=== PATIENT | female | born 1995 | race American Indian/Alaskan Native ===

== ENCOUNTER 2021-08-02 09:56 | Inpatient (IN) | payer MEDICAID ==
[2021-08-02] MEDS ORDERED: LIDOCAINE (2%) 20 MG/1 ML VIAL 20 ML MDV INFILTRATI NR (11:06)
[2021-08-02] MEDS ORDERED: AMPICILLIN/NS 2 GM/100 ML 2 GM/100 ML BAG IV ONE (11:06)
[2021-08-02 11:23] LABS: Hematocrit 32.6 % (30.3-42.9); Mean Corpuscular HGB Conc 31 % (30-34); Mean Corpuscular Volume 73 fl (79-97); Platelet Count 288 K/mm3 (140-440); Red Blood Count 4.45 M/mm3 (3.65-5.03); Red Cell Distribution Width 16.1 % (13.2-15.2)
[2021-08-02] MEDS ORDERED: METHYLERGONOVINE MALEATE 0.2 MG/ML VIAL IM PRN (11:30)
[2021-08-02] MEDS ORDERED: miSOPROStol 200 MCG TAB PR PRN (11:30)
[2021-08-02] MEDS ORDERED: OXYTOCIN 10 UNIT/1 ML INJ IM PRN (11:30)
[2021-08-02] MEDS ORDERED: CARBOPROST TROMETHAMINE 250 MCG/1 ML INJ IM PRN (11:30)
[2021-08-02] MEDS ORDERED: NalbUPHINE 10 MG/1 ML INJ IV PRN ×2 (11:30→17:00)
[2021-08-02] MEDS ORDERED: TERBUTALINE 1 MG/1 ML INJ SUB-Q PRN (11:30)
[2021-08-02] MEDS ORDERED: ONDANSETRON 4 MG/2 ML INJ IV PRN ×2 (11:30→17:00)
[2021-08-02] MEDS ORDERED: LOPERAMIDE 2 MG CAP PO PRN (11:30)
[2021-08-02] MEDS ORDERED: fentaNYL 100 MCG/2 ML INJ IV PRN (11:30)
[2021-08-02] MEDS ORDERED: ePHEDrine SULFATE 50 MG/1 ML INJ IV PRN (11:30)
[2021-08-02] MEDS ORDERED: PROMETHAZINE 25 MG TAB PO PRN (11:30)
--- NOTE | 2021-08-02 11:54 | History and Physical Report ---
History of Present Illness Date of examination: 08/02/21 Date of admission: 08/02/21 11:06 Chief complaint: sent from clinic with LOF History of present illness: at 39.6wks by LMP c/w U/S and care at [facility]. Pt gave h/o LOF while she was being examined in the [facility] at 9:15am this morning. The color of fluid was blood tinged per FOB present and bloody per pt report. pt c/o painful ctx and wants no epidural at this time. Pt admits to movement and denies headache. Past History Past Medical History: no pertinent history Past Surgical History: no surgical history Social history: no significant social history - Obstetrical History Expected Date of Delivery: 08/03/21 Actual Gestation: 39 Week(s) 6 Day(s) : 1 Hx # Term Pregnancies: 0 Number of Living Children: 0 Medications and Allergies Allergies Allergy/AdvReac Type Severity Reaction Status Date / Time No Known Allergies Allergy Verified 08/02/21 11:48 Home Medications Medication Instructions Recorded Confirmed Last Taken Type Cvs Vitamins Tablet 1 tab PO DAILY 08/02/21 08/02/21 3 Days Ago History ~07/30/21 Active Meds: Active Medications Acetaminophen (Acetaminophen 325 Mg Tab) 650 mg PO Q4H PRN PRN Reason: Pain, Mild (1-3) Carboprost Tromethamine (Carboprost Tromethamine 250 Mcg/1 Ml Inj) 250 mcg IM ONCE PRN PRN Reason: Uterine Bleeding Ephedrine Sulfate (Ephedrine Sulfate 50 Mg/1 Ml Inj) 10 mg IV Q2M PRN PRN Reason: Hypotension Fentanyl (Fentanyl 100 Mcg/2 Ml Inj) 100 mcg IV Q2H PRN PRN Reason: Pain,Severe (7-10) LABOR PAIN Oxytocin/Sodium Chloride (Pitocin/Ns 30 Unit/500ml) 30 units in 500 mls @ 2 mls/hr IV TITR RODOLFO; Protocol Lactated Ringer's (Lactated Ringers) 1,000 mls @ 125 mls/hr IV DIRECT RODOLFO Oxytocin/Sodium Chloride (Pitocin/Ns 30 Unit/500ml) 30 units in 500 mls @ 40 mls/hr IV TITR RODOLFO; Protocol Ampicillin Sodium (Ampicillin/Ns 2 Gm/100 Ml) 2 gm in 100 mls @ 100 mls/hr IV ONCE ONE; Protocol Stop: 08/02/21 12:05 Lidocaine (Lidocaine (2%) 20 Mg/1 Ml Vial 20 Ml Mdv) 20 ml INFILTRATI ONCE NR Stop: 08/02/21 20:00 Loperamide HCl (Loperamide 2 Mg Cap) 2 mg PO ONCE PRN PRN Reason: give with Hemabate Methylergonovine Maleate (Methylergonovine Maleate 0.2 Mg/Ml Vial) 0.2 mg IM ONCE PRN PRN Reason: Uterine Bleeding Mineral Oil (Mineral Oil 30 Ml Oral Liqd) 30 ml PO QHS PRN PRN Reason: Constipation Misoprostol (Misoprostol 200 Mcg Tab) 800 mcg [place] ONCE PRN PRN Reason: Uterine Bleeding Nalbuphine HCl (Nalbuphine 10 Mg/1 Ml Inj) 10 mg IV Q2H PRN PRN Reason: Pain, Moderate (4-6) Ondansetron HCl (Ondansetron 4 Mg/2 Ml Inj) 4 mg IV Q8H PRN PRN Reason: Nausea And Vomiting Oxytocin (Oxytocin 10 Unit/1 Ml Inj) 10 unit IM ONCE PRN PRN Reason: Uterine Bleeding Promethazine HCl (Promethazine 25 Mg Tab) 25 mg PO Q6H PRN PRN Reason: Nausea And Vomiting Terbutaline Sulfate (Terbutaline 1 Mg/1 Ml Inj) 0.25 mg SUB-Q ONCE PRN PRN Reason: Hyperstimulation/Hypertonicity Review of Systems All systems: negative (LOF and ctx) - Vital Signs Vital signs: Vital Signs Pulse Pulse Ox 99 H 99 08/02/21 10:28 08/02/21 10:28 Temp Pulse Resp BP Pulse Ox 93 H 139/73 99 08/02/21 11:13 08/02/21 10:35 08/02/21 11:13 - Physical Exam Breasts: Positive: deferred Cardiovascular: Regular rate Lungs: Positive: Normal air movement Abdomen: Positive: soft Genitourinary (Female): Positive: normal external genitalia Uterus: Positive: enlarged (gravid and non-tender) Extremities: Positive: normal - Obstetrical FHR: category 1 Uterine Contraction Monitor Mode: Palpation Cervical Dilatation: 5 (by triage nurse) Cervical Effacement Percentage: 80 station: -2 Uterine Contraction Pattern: Irregular Uterine Contraction Intensity: Moderate Results Result Diagrams: 08/02/21 10:58 Abnormal lab results 08/02/21 Range/Units 10:58 WBC 17.6 H (4.5-11.0) K/mm3 Hgb 10.0 L (10.1-14.3) gm/dl MCV 73 L (79-97) fl MCH 23 L (28-32) pg RDW 16.1 H (13.2-15.2) % All other labs normal. Assessment and Plan Term IUP in active labor, leucocytosis seen, GBS not recorded in the chart. PNC at [place] 1. Admit to labor and delivery, may have epidural if pt changes her mind 2. Augment with pitocin 3. Give amp now for unknown GBS 4. Will send cath urine specimen for possible UTI 5. Give IV pain med now and hydrate Discussed plan of care with pt for vaginal attempt, with FHR reassuring at this time. If NRFHR, then alternate route of delivery with section recommended, risks, benefits and alternatives discussed. Pt declines C/Section. All questions encouraged and answered
[2021-08-02] MEDS ORDERED: OXYTOCIN DRIP 30 UNITS/500 ML BAG IV SCH ×3 (12:00→22:03)
--- NOTE | 2021-08-02 12:16 | Event Note ---
Date: 08/02/21 pt re-evaluated and very tearful. Areas of external FHR with loss of contact. FSE and IUPC placed. Amniotic fluid remains blood tinged. Pelvic /. Will make ctx adequate with pitocin and to get amp first dose now. Hopeful for vaginal delivery.
[2021-08-02] MEDS: LACTATED RINGERS 1,000 ML IV SCH ×2 (12:30→22:55)
--- NOTE | 2021-08-02 14:00 | Event Note ---
Date: 08/02/21 pt evaluated with NRFHR and the need for alternate route of delivery via section; risks, benefits and alternatives discussed including cerebral palsy in the infant and pt declines c/section. Oral temp 97.9 and axillary 101 and pt with rigors. I pleaded with pt concerning alternative route of delivery with FOB present and she declines. Will continue oxygen therapy. Will do CXR with febrile morbidity and with give broad spectrum antibiotics with amp and gent for now. Will do blood cultures now and add lactic acid. Unable to start pitocin at this time. Pt still declines epidural. Plan of care discussed. All questions encouraged and answered
[2021-08-02] MEDS ORDERED: ACETAMINOPHEN 500 MG TAB PO ONE (14:05)
--- NOTE | 2021-08-02 14:59 | XRay Report ---
CHEST 1 VIEW INDICATION: febrile morbidity and ;. COMPARISON: None FINDINGS: Support devices: None. Heart: Within normal limits. Lungs/Pleura: No acute air space or interstitial disease. Additional findings: None. IMPRESSION: No acute findings. Signer Name: Seven Beltrán Jr, MD Signed: 08/02/2021 2:54 PM Workstation Name: [id number]
[2021-08-02] MEDS ORDERED: GENTAMICIN/NS 100 MG/100 ML 100 MG/100 ML BAG IV SCH (15:00)
[2021-08-02] MEDS ORDERED: ONDANSETRON 4 MG/2 ML INJ ONE (15:14)
[2021-08-02] MEDS ORDERED: BUPIVACAINE/PF (0.5%) 5 MG/1 ML 30 ML VIAL INFILTRATI ONE (15:14)
[2021-08-02] MEDS ORDERED: KETOROLAC 30 MG/1 ML INJ ONE (15:14)
[2021-08-02] MEDS ORDERED: dexAMETHasone 20 MG/5 ML VIAL ONE (15:15)
[2021-08-02] MEDS ORDERED: BICITRA ORAL LIQD 30ML PO NR (15:16)
--- NOTE | 2021-08-02 15:20 | Event Note ---
Date: 08/02/21 Pt now with meconium stained fluid and after another attempt for c/section route of delivery, pt discussed with FOB and plans to do same. Elevated lactic acid seen and anesthesiologist aware and will decide preferred method for c/section; NICU notified. Covid test to be done when daily staff available in the am. Fetus remains with tacchy in the 180's and moderate variability. Nurse states pt refused pelvic exam.
[2021-08-02 15:22] LABS: Alanine Aminotransferase 17 units/L (7-56); Albumin 3.1 g/dL (3.9-5); BUN/Creatinine Ratio 4; Blood Urea Nitrogen 3 mg/dL (7-17); Calcium 8.9 mg/dL (8.4-10.2); Hemolysis Index 1; Uric Acid 3.8 mg/dL (3.5-7.6)
[2021-08-02] MEDS ORDERED: PHENYLEPHRINE 10 MG/1 ML INJ SDV ONE (15:24)
[2021-08-02] MEDS ORDERED: LIDOCAINE MPF (2%) 20 MG/1 ML VIAL 5 ML ONE (15:24)
[2021-08-02] MEDS ORDERED: FAMOTIDINE 20 MG/2 ML INJ IV ONE (15:30)
[2021-08-02] MEDS ORDERED: AMPICILLIN/NS 1 GM/50 ML 1 GM/50 ML BAG IV SCH (16:00)
[2021-08-02] MEDS ORDERED: METOCLOPRAMIDE 10 MG/2 ML INJ IV NR (16:00)
[2021-08-02] MEDS ORDERED: ceFAZolin/STERILE WATER 2 GM/20 ML SYRINGE IV NR (16:00)
--- NOTE | 2021-08-02 16:30 | Anesthesia Day of Surgery ---
Anesthesia Day of Surgery - Day of Surgery Patient Examined: Yes Patient H&P Reviewed: Yes Patient is NPO: Yes Beta Blockers: No Cardiac Clearance: No Pulmonary Clearance: No Dameon's Test: N/A
--- NOTE | 2021-08-02 16:31 | Anesthesia Consultation ---
Anesthesia Consult and Med Hx Date of service: 08/02/21 - Airway Anesthetic Teeth Evaluation: Good ROM Head & Neck: Adequate Mental/Hyoid Distance: Adequate Mallampati Class: Class III Intubation Access Assessment: Possibly Difficult - Pulmonary Exam CTA: Yes - Cardiac Exam Cardiac Exam: RRR - Pre-Operative Health Status ASA Pre-Surgery Classification: ASA3, Emergency Proposed Anesthetic Plan: Epidural, Spinal Nerve Block: TAP - Pulmonary Hx Smoking: No Hx Asthma: No Hx Respiratory Symptoms: Yes (PUI covid) Hx Sleep Apnea: No - Cardiovascular System Hx Hypertension: No Hx Heart Attack/AMI: No Hx Angina: No - Central Nervous System Hx Seizures: No Hx Psychiatric Problems: No - Gastrointestinal Hx Gastroesophageal Reflux Disease: No - Endocrine Hx Renal Disease: No Hx Liver Disease: No Hx Insulin Dependent Diabetes: No Hx Non-Insulin Dependent Diabetes: No Hx Hypothyroidism: No Hx Hyperthyroidism: No - Hematic Hx Anemia: No Hx Sickle Cell Disease: No - Other Systems Hx Alcohol Use: Yes (none during ) Hx Obesity: Yes
[2021-08-02] MEDS ORDERED: NALOXONE 0.4 MG/1 ML INJ IV PRN ×2 (16:32→22:03)
--- NOTE | 2021-08-02 16:32 | Progress Note ---
Spinal Anesthesia Block - Spinal Anesthesia Block Start Time: 15:45 Stop Time: 16:00 Performed by:: ANY BOURGEOIS (Mandy Sharma SRNA) Procedure: Combined spinal epidural is being performed for C/S. H&P, labs were reviewed. All questions and concerns were answered. Informed consent was obtained. Timeout performed. Patient in sitting position on side of bed. Sterile prep and drape was performed. 3 mL 1% lidocaine skin wheal at L [3]-L [4]. 17-gauge Tuohy epidural needle advanced to [id number] using air technique, [8cm]. 25-gauge spinal needle advanced, positive free-flowing CSF. Spinal dose of [Marcaine 10mg and Precedex 5mcg]. Epidural catheter advanced to [14] cm. [negative] Aspiration, [negative] test dose. Sterile dressing applied. Patient tolerated procedure well.
[2021-08-02] MEDS ORDERED: PROMETHAZINE 25 MG RECT SUPP PR PRN (17:00)
[2021-08-02] MEDS ORDERED: diphenhydrAMINE 50 MG/ML VIAL IV PRN (17:00)
[2021-08-02] MEDS ORDERED: HYDROmorphone 1 MG/1 ML INJ IV PRN (17:00)
--- NOTE | 2021-08-02 18:08 | Procedure Note ---
OB Delivery Note - Delivery Date of Delivery: 08/02/21 Surgeon: RADHA VILLAVICENCIO Estimated blood loss: other (1864cc) - Section Preop diagnosis: nonreassuring FHR tracing (IUP at 39.6wks, morbid obesity, febrile morbidity, chorioamnionitis) Postop diagnosis: same (and PPH) section procedure: primary low transverse Disposition: floor Complications: intra-op hemorrhage, uterine atony Narrative: Date: 08/02/21 Surgeon: Radha Villavicencio MD Preop Dx: IUP at 39.6wks, Non-reassuring FHR at 6cm with marked variability, meconium stained fluid, morbid obesity, Febrile morbidity Postop Dx: same Procedure : Primary Low transverse section Anesthesia: Spinal/epidural Intake: 1100cc Output: 500cc EBL: 1864 per QBL After the risks, benefits and alternatives of procedure discussed, patient signed consents and was taken to the operating room. Pt was given spinal/epidural anesthesia. After same was adequate, patient was prepped and draped in the usual sterile fashion. Peraza catheter in place and draining slightly cloudy urine. Pt was given prophylactic antibiotic per protocol and time out was done Pfannenstiel skin incision was made and taken sharply to the fascia and the incision extended using electrocautery. Superior edge of the fascia was grasped with ramin clamps and the rectus muscle using blunt dissection and also using electrocautery. Lower portion of the fascia also with electrocautery. Rectus muscle in the midline and Peritoneal cavity entered bluntly and extended with good visualization of the bladder. Kamran retractor placed. The bladder flap was created sharply using metzenbaum scissors. Lower uterine segment then entered transversely and amniotic sac entered using allys clamps. Uterine incision extended using bandage scissors. Meconium stained Infant delivered, with long umbilical cord around lower left extremity; infant bulb suctioned, cord clamped and baby handed to waiting pediatricians. Placenta then delivered completely and uterine cavity cleared of all clots and debri. The uterus was very boggy and same was not exteriorized but closed in 2 layers using 0-monocryl suture in a running locked fashion and then an additional layer of imbrication suture. Bladder peritoneum made hemostatic with electrocautery. Surgicel powder placed along incision line. Excellent hemostasis noted. The gutters were cleared of clots and debri and anterior peritoneum closed using 3-0 vicryl suture and rectus muscle reapproximated using 0-vicryl suture, both in a continuous fshion. Rectus fascia closed with 0-vicryl suture in a running locked fashion and subcutaneous tissue copiously irrigated with normal saline and re-approximated using 3-0 vicryl suture. Excellent hemostasis remains. The skin was closed with 4-0 monocryl suture and steristrips placed with pressure dressing. Sponge, lap, instrument and needle counts x2 were normal. Patient tolerated the procedure well and was taken to recovery room stable. Pt treated with methergine 0.2mg IM and pitocin IV for uterine atony and CBC to be done in recovery room with hemorrhage Findings: Viable male with meconium stained skin color, APGARS 8/9 and weight 3340g. Normal boggy uterus, tubes and ovaries. Pathology: placenta sent to pathology - A at 1 minute: 8 at 5 minutes: 9 Gender: Male (wt 3340g, thick meconium stained fluid and meconium stained)
[2021-08-02 18:57] LABS: Hematocrit 30.9 % (30.3-42.9); Hemoglobin 9.4 gm/dl (10.1-14.3); Mean Corpuscular HGB Conc 30 % (30-34); Mean Corpuscular Volume 73 fl (79-97); Platelet Count 246 K/mm3 (140-440); Red Blood Count 4.23 M/mm3 (3.65-5.03)
[2021-08-02] MEDS ORDERED: SODIUM CHLORIDE 0.9% 1000 ML 1,000 ML ONE (18:59)
[2021-08-02] MEDS ORDERED: SODIUM CHLORIDE 0.9% 1000 ML 1,000 ML IV ONE (19:19)
[2021-08-02 19:45] LABS: Anisocytosis RARE; Basophils % (Manual) 0 % (0.0-1.8); Eosinophils % (Manual) 0 % (0.0-4.3); Hypochromasia 1+; Total Cells Counted 100
[2021-08-02] MEDS ORDERED: GENTAMICIN 450 MG in SODIUM CHLORIDE 0.9% 100 ML IV SCH (22:00)
[2021-08-02] MEDS ORDERED: MINERAL OIL 30 ML ORAL LIQD PO PRN (22:00)
[2021-08-02] MEDS ORDERED: LANOLIN/ZINC/DIMETHICONE (LANSINOH) 7 GM TP PRN (22:03)
[2021-08-02] MEDS ORDERED: SENNOSIDES 8.6 MG TAB PO PRN (22:03)
[2021-08-02] MEDS ORDERED: MAGNESIUM HYDROXIDE (MOM) ORAL LIQD UDC PO PRN (22:03)
[2021-08-02] MEDS ORDERED: WITCH HAZEL/ GLYCERIN PAD TP PRN (22:03)
[2021-08-02] MEDS ORDERED: HYDROCORTISONE 25 MG RECTAL SUPP PR PRN (22:03)
[2021-08-02] MEDS ORDERED: SIMETHICONE 80 MG CHEW TAB PO PRN (22:03)
[2021-08-02] MEDS ORDERED: MORPHINE 4 MG/1 ML INJ IV PRN (22:03)
[2021-08-02] MEDS: FERROUS SULFATE 325 MG TAB PO SCH (22:54)
[2021-08-02] MEDS: AMPICILLIN/NS 2 GM/100 ML 2 GM/100 ML BAG IV SCH (23:14)
[2021-08-03] MEDS: AMPICILLIN/NS 2 GM/100 ML 2 GM/100 ML BAG IV SCH ×2 (06:16→11:25)
--- NOTE | 2021-08-03 08:15 | Post Anesthesia Evaluation ---
- Post Anesthesia Evaluation Patient Participated: Yes Airway Patent: Yes Stable Respiratory Function: Yes Nausea/Vomiting: No Temp > 96.8F: Yes Pain Manageable: Yes Adequeate Hydration: Yes Anesthesia Complications: No Block Receding Appropriately: Yes Patient on Ventilator: No
[2021-08-03] MEDS: oxyCODONE /ACETAMINOPHEN 5-325MG TAB PO PRN (08:25)
--- NOTE | 2021-08-03 09:04 | Progress Note ---
Assessment and Plan A: POD #1 Asymptomatic Anemia P: Follow Routine PostOP Orders Increase Dietary Iron D/C Peraza; Increase Ambulation Subjective - Subjective Date of service: 08/03/21 Patient reports: appetite normal, voiding normally (Peraza in Place; adquate urine output), pain well controlled, flatus, ambulating normally : in NICU Objective - Vital Signs Latest vital signs: Vital Signs Temp Pulse Resp BP BP Pulse Ox Pulse Ox 08/03/21 08:00 98 08/03/21 07:41 98.6 F 97 H 20 112/66 100 08/03/21 06:06 97.5 F L 108 H 18 136/78 100 08/03/21 01:01 98.0 F 105 H 18 143/93 100 08/02/21 22:54 18 08/02/21 22:25 98.0 F 101 H 19 118/82 100 08/02/21 21:45 100 08/02/21 20:00 99 F 103 H 19 116/62 99 08/02/21 19:45 99 H 14 121/56 99 08/02/21 19:30 102 H 17 115/60 100 08/02/21 18:50 98.3 F 100 H 18 103/51 100 08/02/21 18:35 97.5 F L 91 H 21 106/52 100 08/02/21 18:20 97.5 F L 85 18 104/52 100 08/02/21 18:15 97.5 F L 87 18 117/56 98 08/02/21 18:10 97.5 F L 86 16 116/65 99 08/02/21 18:05 97.5 F L 89 14 122/51 99 08/02/21 15:31 107 H 100 08/02/21 15:26 117 H 100 08/02/21 15:21 111 H 100 08/02/21 15:18 107 H 122/82 08/02/21 15:16 109 H 100 08/02/21 15:11 115 H 100 08/02/21 15:06 114 H 100 08/02/21 15:01 112 H 100 08/02/21 14:56 115 H 100 08/02/21 14:51 109 H 100 08/02/21 14:46 110 H 100 08/02/21 14:41 110 H 100 08/02/21 14:36 110 H 100 08/02/21 14:31 121 H 100 08/02/21 14:27 99.3 F 123 H 16 145/72 100 08/02/21 14:26 112 H 100 08/02/21 14:21 118 H 100 08/02/21 14:18 115 H 145/72 08/02/21 14:16 119 H 100 08/02/21 14:11 120 H 100 08/02/21 14:06 116 H 100 08/02/21 14:01 121 H 100 08/02/21 13:58 101.0 F H 08/02/21 13:56 129 H 100 08/02/21 13:51 130 H 98 08/02/21 13:46 45 L 97 08/02/21 13:40 113 H 96 08/02/21 13:35 115 H 100 08/02/21 13:33 104 H 90 08/02/21 13:30 96 H 100 08/02/21 13:25 101 H 100 08/02/21 13:20 98 H 151/76 100 08/02/21 13:19 97 H 146/87 08/02/21 13:15 99 H 100 08/02/21 13:10 101 H 100 08/02/21 13:05 100 H 100 08/02/21 13:00 101 H 100 08/02/21 12:55 100 H 100 08/02/21 12:50 108 H 100 08/02/21 12:45 98 H 100 08/02/21 12:40 100 H 100 08/02/21 12:35 96 H 100 08/02/21 12:30 100 H 100 08/02/21 12:25 100 H 100 08/02/21 12:20 95 H 100 08/02/21 12:19 93 H 94 08/02/21 12:16 87 137/76 08/02/21 12:15 88 100 08/02/21 12:00 97 08/02/21 11:50 97.9 F 96 H 16 137/76 100 08/02/21 11:13 93 H 99 08/02/21 11:08 94 H 98 08/02/21 11:03 92 H 98 08/02/21 10:58 93 H 98 08/02/21 10:53 91 H 99 08/02/21 10:48 100 H 98 08/02/21 10:43 94 H 99 08/02/21 10:38 97 H 100 08/02/21 10:35 96 H 139/73 08/02/21 10:33 98 H 100 08/02/21 10:28 99 H 99 Intake and Output 08/02/21 08/03/21 08/03/21 22:59 06:59 14:59 Intake Total 2600 460 120 Output Total 700 1400 Balance 1900 -940 120 Intake: IV 2600 100 AMPICILLIN/NS 2 GM/100 ML 100 2 gm In 100 ml @ 100 mls /hr IV Q6H RODOLFO Rx#: [id number] CLEOCIN 900 MG/50 mL 900 50 mg In 50 ml @ 100 mls/hr IV Q8H RODOLFO Rx#:[id number] Oral 360 120 Output: Urine 700 1400 Indwelling Catheter 1400 Other: Total, Intake Amount 120 120 Total, Output Amount 800 Estimated Blood Loss 1,864 - Exam Breasts: Present: normal Cardiovascular: Present: Regular rate Lungs: Present: Clear to auscultation, Normal air movement Abdomen: Present: normal appearance, soft, normal bowel sounds Uterus: Present: normal, firm, fundal height below umbilicus Extremities: Present: normal Incision: Present: dry, dressed - Labs Labs: Abnormal lab results 08/02/21 08/02/21 08/02/21 Range/Units 10:58 14:19 14:19 WBC 17.6 H (4.5-11.0) K/mm3 Hgb 10.0 L (10.1-14.3) gm/dl MCV 73 L (79-97) fl MCH 23 L (28-32) pg RDW 16.1 H (13.2-15.2) % Seg Neuts % (Manual) (40.0-70.0) % Lymphocytes % (Manual) (13.4-35.0) % Seg Neutrophils # Man (1.8-7.7) K/mm3 Lymphocytes # (Manual) (1.2-5.4) K/mm3 Monocytes # (Manual) (0.0-0.8) K/mm3 Sodium 136 L (137-145) mmol/L Carbon Dioxide 15 L (22-30) mmol/L BUN 3 L (7-17) mg/dL Lactic Acid (0.7-2.0) mmol/L Alkaline Phosphatase 322 H (35-129) units/L Lactate Dehydrogenase 218 H (91-180) units/L Albumin 3.1 L (3.9-5) g/dL 08/02/21 08/02/21 Range/Units 14:19 18:39 WBC 22.4 H (4.5-11.0) K/mm3 Hgb 9.4 L (10.1-14.3) gm/dl MCV 73 L (79-97) fl MCH 22 L (28-32) pg RDW 16.0 H (13.2-15.2) % Seg Neuts % (Manual) 91.0 H (40.0-70.0) % Lymphocytes % (Manual) 3.0 L (13.4-35.0) % Seg Neutrophils # Man 20.4 H (1.8-7.7) K/mm3 Lymphocytes # (Manual) 0.7 L (1.2-5.4) K/mm3 Monocytes # (Manual) 1.3 H (0.0-0.8) K/mm3 Sodium (137-145) mmol/L Carbon Dioxide (22-30) mmol/L BUN (7-17) mg/dL Lactic Acid 5.20 H* (0.7-2.0) mmol/L Alkaline Phosphatase (35-129) units/L Lactate Dehydrogenase (91-180) units/L Albumin (3.9-5) g/dL
[2021-08-03] MEDS ORDERED: FAMOTIDINE 20 MG/2 ML INJ IV SCH ×2 (10:00→15:26)
[2021-08-03 10:35] LABS: Hematocrit 25.6 % (30.3-42.9); Hemoglobin 7.9 gm/dl (10.1-14.3); Mean Corpuscular HGB Conc 31 % (30-34); Mean Corpuscular Volume 74 fl (79-97); Platelet Count 258 K/mm3 (140-440); Red Blood Count 3.48 M/mm3 (3.65-5.03); Red Cell Distribution Width 16.4 % (13.2-15.2)
[2021-08-03] MEDS: LACTATED RINGERS 1,000 ML IV SCH (11:24)
[2021-08-03] MEDS: PRENATAL VIT27-FE FUMARATE-FOLIC ACID VIT TAB PO SCH (11:31)
[2021-08-03] MEDS: IBUPROFEN 800 MG TAB PO PRN ×2 (11:31→19:22)
[2021-08-03] MEDS: FERROUS SULFATE 325 MG TAB PO SCH ×2 (11:31→20:18)
[2021-08-03 14:47] LABS: Band Neutrophils # (Manual) 1.1 K/mm3; Basophils % (Manual) 0 % (0.0-1.8); Eosinophils % (Manual) 0 % (0.0-4.3); Myelocytes # (Manual) 0.4 K/mm3; Total Cells Counted 100
[2021-08-03 14:56] LABS: Platelet Clumps 1+; Platelet Estimate Consistent w Auto
--- NOTE | 2021-08-03 17:08 | Event Note ---
Date: 08/03/21 labs reviewed outside the hospital by me and positive gm neg rods noted in 1/2 blood culture bottles, urine culture prelim peinding and wbc elevated to 36,000 while pt on amp/gent/clinda. I spoke with Charge nurse who states Dr. Pedroza was notified during the night and no meds changed. I notified agronomist team Dr. Yanes and verbal consult called to Dr. Mullins (infect Dz team) and he recommends to stop all other antibiotics and start zosyn 4.5mg every 8hrs for 7days and same done. Repeat CBC and CMP ordered and pt to be notified per fadia durand nurse pt off the floor visiting her baby. Charge nurse states that pt is asymptomatic.
[2021-08-03] MEDS ORDERED: GENTAMICIN 450 MG in SODIUM CHLORIDE 0.9% 100 ML IV SCH (22:00)
[2021-08-03] MEDS: PIPERACIL/TAZOBACTA 4.5/NS 100 4.5 GM/100 ML VIAL IV SCH (23:30)
[2021-08-04] MEDS: oxyCODONE /ACETAMINOPHEN 5-325MG TAB PO PRN
[2021-08-04 06:20] LABS: Basophils % (Auto) 0.2 % (0.0-1.8); Eosinophils # (Auto) 0.1 K/mm3 (0.0-0.4); Eosinophils % (Auto) 0.3 % (0.0-4.3); Hematocrit 26.6 % (30.3-42.9); Hemoglobin 8.4 gm/dl (10.1-14.3); Lymphocytes % (Auto) 5.3 % (13.4-35.0); Mean Corpuscular HGB Conc 32 % (30-34); Mean Corpuscular Volume 73 fl (79-97); Monocytes # (Auto) 1.2 K/mm3 (0.0-0.8); Monocytes % (Auto) 5.9 % (0.0-7.3); Platelet Count 280 K/mm3 (140-440); Red Blood Count 3.67 M/mm3 (3.65-5.03); Red Cell Distribution Width 16.4 % (13.2-15.2)
[2021-08-04 06:42] LABS: Alanine Aminotransferase 15 units/L (7-56); Albumin 2.8 g/dL (3.9-5); BUN/Creatinine Ratio 8; Blood Urea Nitrogen 7 mg/dL (7-17); Calcium 8.2 mg/dL (8.4-10.2); Hemolysis Index 4
[2021-08-04] MEDS: FERROUS SULFATE 325 MG TAB PO SCH ×3 (08:10→20:12)
[2021-08-04] MEDS: PIPERACIL/TAZOBACTA 4.5/NS 100 4.5 GM/100 ML VIAL IV SCH ×3 (08:11→20:12)
--- NOTE | 2021-08-04 08:40 | Progress Note ---
Assessment and Plan - Patient Problems (1) Postoperative infection Current Visit: Yes Status: Acute Plan to address problem: patient demonstrating clinical improvement encourage ambulation and IS use tylenol for current temp spike (2) Bacteremia Current Visit: Yes Status: Acute Subjective - Subjective Date of service: 08/04/21 Interval history: Patient without any significant complaints. Had temp spike this am however wbc is decreasing. Patient is tolerating diet and voiding. Pain is controlled Patient reports: appetite normal, voiding normally, pain well controlled [place]: in NICU Objective - Vital Signs Latest vital signs: Vital Signs Temp Pulse Resp BP Pulse Ox Pulse Ox 08/04/21 01:00 18 08/04/21 00:00 18 08/03/21 23:35 97.1 F L 95 H 18 129/66 100 08/03/21 20:00 98 08/03/21 15:24 97.7 F 107 H 18 119/74 100 Intake and Output 08/03/21 08/04/21 08/04/21 22:59 06:59 14:59 Intake Total 960 520 Output Total 800 1000 Balance 160 -480 Intake: IV 100 ZOSYN/NS 4.5GM/100ML 4.5 100 gm In 100 ml @ 200 mls/hr IV Q8H RODOLFO Rx#:[id number] Oral 360 Intake, Free Water 600 420 Output: Urine 800 1000 Void 800 1000 Other: Total, Intake Amount 360 Total, Output Amount 800 400 # Voids Void 1 - Exam Abdomen: Present: normal appearance, soft Incision: Present: dressed - Labs Labs: Abnormal lab results 08/03/21 08/04/21 08/04/21 Range/Units 09:19 05:47 05:47 WBC 36.4 H 19.4 H (4.5-11.0) K/mm3 RBC 3.48 L (3.65-5.03) M/mm3 Hgb 7.9 L 8.4 L (10.1-14.3) gm/dl Hct 25.6 L 26.6 L (30.3-42.9) % MCV 74 L 73 L (79-97) fl MCH 23 L 23 L (28-32) pg RDW 16.4 H 16.4 H (13.2-15.2) % Lymph % (Auto) 5.3 L (13.4-35.0) % Lymph # (Auto) 1.0 L (1.2-5.4) K/mm3 [place] # (Auto) 1.2 H (0.0-0.8) K/mm3 Seg Neutrophils % 88.3 H (40.0-70.0) % Seg Neuts % (Manual) 92.0 H (40.0-70.0) % Lymphocytes % (Manual) 2.0 L (13.4-35.0) % Seg Neutrophils # 17.1 H (1.8-7.7) K/mm3 Seg Neutrophils # Man 33.5 H (1.8-7.7) K/mm3 Lymphocytes # (Manual) 0.7 L (1.2-5.4) K/mm3 Sodium 134 L (137-145) mmol/L Carbon Dioxide 21 L (22-30) mmol/L Lactic Acid (0.7-2.0) mmol/L Calcium 8.2 L (8.4-10.2) mg/dL Alkaline Phosphatase 183 H (35-129) units/L Lactate Dehydrogenase 234 H (91-180) units/L Total Protein 5.7 L (6.3-8.2) g/dL Albumin 2.8 L (3.9-5) g/dL 08/04/21 08/04/21 Range/Units 05:47 07:19 WBC (4.5-11.0) K/mm3 RBC (3.65-5.03) M/mm3 Hgb (10.1-14.3) gm/dl Hct (30.3-42.9) % MCV (79-97) fl MCH (28-32) pg RDW (13.2-15.2) % Lymph % (Auto) (13.4-35.0) % Lymph # (Auto) (1.2-5.4) K/mm3 [place] # (Auto) (0.0-0.8) K/mm3 Seg Neutrophils % (40.0-70.0) % Seg Neuts % (Manual) (40.0-70.0) % Lymphocytes % (Manual) (13.4-35.0) % Seg Neutrophils # (1.8-7.7) K/mm3 Seg Neutrophils # Man (1.8-7.7) K/mm3 Lymphocytes # (Manual) (1.2-5.4) K/mm3 Sodium (137-145) mmol/L Carbon Dioxide (22-30) mmol/L Lactic Acid 2.60 H* 2.10 H* (0.7-2.0) mmol/L Calcium (8.4-10.2) mg/dL Alkaline Phosphatase (35-129) units/L Lactate Dehydrogenase (91-180) units/L Total Protein (6.3-8.2) g/dL Albumin (3.9-5) g/dL
[2021-08-04] MEDS: ACETAMINOPHEN 325 MG TAB PO PRN ×2 (09:45→15:59)
[2021-08-04] MEDS: PRENATAL VIT27-FE FUMARATE-FOLIC ACID VIT TAB PO SCH (09:46)
--- NOTE | 2021-08-04 12:31 | Consultation ---
History of Present Illness - Reason for Consult Consult date: 08/04/21 GNR bacteremia Requesting physician: ANAY VILLAVICENCIO - History of Present Illness The patient is a 25-year-old female admitted to the hospital on 08/02/2021 was admitted from her OB clinic with active labor and blood-tinged amniotic fluid concerning for chorioamnionitis. She had fever 101 F on admission as well as leukocytosis. Was started on empiric antibiotic course. She underwent a C- section on 08/02/2021. Blood cultures turned positive for GNR, infectious diseases has been consulted for additional evaluation. Febrile again this morning at 101.3 F. Otherwise she feels well, denies any breathing issues. Denies urinary burning. Denies abdominal pain. Still having vaginal bleeding, denies any purulence. Review of Systems: General: fever HEENT: no new visual disturbance Respiratory: No cough, sputum, hemoptysis or shortness of breath Cardiovascular: No chest pain, syncope Gastrointestinal: No nausea, vomiting or diarrhea Genitourinary: No dysuria or hematuria Musculoskeletal: No new or worsening neck pain or back pain Neurologic: No headaches, seizures Hematologic: No easy bruising or bleeding Endocrine: No night sweats or acute weight loss Skin: negative for rash, jaundice Psychiatric: No suicidal or homicidal ideation Past History Social history: no significant social history Medications and Allergies Allergies Allergy/AdvReac Type Severity Reaction Status Date / Time No Known Allergies Allergy Verified 08/02/21 11:48 Home Medications Medication Instructions Recorded Confirmed Last Taken Type [facility] Tablet 1 tab PO DAILY 08/02/21 08/02/21 3 Days Ago History ~07/30/21 Ibuprofen [Motrin] 800 mg PO Q8HR PRN 21 Days #40 08/02/21 Unknown Rx tablet oxyCODONE /ACETAMINOPHEN [Percocet 1 tab PO Q4HR PRN 21 Days #30 tab 08/02/21 Unknown Rx 5/325] Active Meds: Active Medications Acetaminophen (Acetaminophen 325 Mg Tab) 650 mg PO Q4H PRN PRN Reason: Pain, Mild (1-3) Last Admin: 08/04/21 09:45 Dose: 650 mg Carboprost Tromethamine (Carboprost Tromethamine 250 Mcg/1 Ml Inj) 250 mcg IM ONCE PRN PRN Reason: Uterine Bleeding Diphenhydramine HCl (Diphenhydramine 50 Mg/Ml Vial) 12.5 mg IV Q2H PRN PRN Reason: Itching Ferrous Sulfate (Ferrous Sulfate 325 Mg Tab) 325 mg PO TID [facility] Last Admin: 08/04/21 08:10 Dose: 325 mg Hydrocortisone Acetate (Hydrocortisone 25 Mg Rectal Supp) 25 mg NM BID PRN PRN Reason: Hemorrhoids Hydromorphone HCl (Hydromorphone 1 Mg/1 Ml Inj) 0.5 mg IV Q4H PRN PRN Reason: breakthrough pain > 7/10 Last Admin: 08/02/21 19:36 Dose: 0.5 mg Lactated Ringer's (Lactated Ringers) 1,000 mls @ 125 mls/hr IV DIRECT RODOLFO Last Admin: 08/03/21 11:24 Dose: 1,000 mls/hr Oxytocin/Sodium Chloride (Pitocin/Ns 30 Unit/500ml) 30 units in 500 mls @ 40 mls/hr IV TITR RODOLFO; Protocol Piperacillin Sod/Tazobactam Sod (Zosyn/Ns 4.5gm/100ml) 4.5 gm in 100 mls @ 200 mls/hr IV Q6H RODOLFO; Protocol Stop: 08/10/21 17:59 Ibuprofen (Ibuprofen 600 Mg Tab) 600 mg PO Q6H PRN PRN Reason: Pain, Mild (1-3) Ibuprofen (Ibuprofen 800 Mg Tab) 800 mg PO Q6H PRN PRN Reason: Pain, Moderate (4-6) Last Admin: 08/03/21 19:22 Dose: 800 mg Loperamide HCl (Loperamide 2 Mg Cap) 2 mg PO ONCE PRN PRN Reason: give with Hemabate Magnesium Hydroxide (Magnesium Hydroxide (Mom) Oral Liqd Udc) 30 ml PO QHS PRN PRN Reason: Constip Unrelieved By Senna Methylergonovine Maleate (Methylergonovine Maleate 0.2 Mg/Ml Vial) 0.2 mg IM ONCE PRN PRN Reason: Uterine Bleeding Mineral Oil (Mineral Oil 30 Ml Oral Liqd) 30 ml PO QHS PRN PRN Reason: Constipation Misoprostol (Misoprostol 200 Mcg Tab) 800 mcg NM ONCE PRN PRN Reason: Uterine Bleeding Morphine Sulfate (Morphine 4 Mg/1 Ml Inj) 4 mg IV Q4H PRN PRN Reason: Pain , Severe (7-10) Last Admin: 08/02/21 22:54 Dose: 4 mg Multi-Ingredient Ointment (Lanolin/Zinc/Dimethicone (Lansinoh) 7 Gm) 1 applic TP PRN PRN PRN Reason: dryness/cracking Last Admin: 08/04/21 09:46 Dose: 1 applic Multivitamins/Iron/Calcium ( Pal01-Wp Fumarate-Folic Acid Vit Tab) 1 each PO QDAY RODOLFO Last Admin: 08/04/21 09:46 Dose: 1 each Naloxone HCl (Naloxone 0.4 Mg/1 Ml Inj) 0.1 mg IV Q2MIN PRN PRN Reason: Res Rate </= 8 or 02 SAT < 92% Ondansetron HCl (Ondansetron 4 Mg/2 Ml Inj) 4 mg IV Q8H PRN PRN Reason: Nausea And Vomiting Oxycodone/Acetaminophen (Oxycodone /Acetaminophen 5-325mg Tab) 2 tab PO Q6H PRN PRN Reason: Pain , Severe (7-10) Last Admin: 08/04/21 00:00 Dose: 2 tab Oxytocin (Oxytocin 10 Unit/1 Ml Inj) 10 unit IM ONCE PRN PRN Reason: Uterine Bleeding Promethazine HCl (Promethazine 25 Mg Tab) 25 mg PO Q6H PRN PRN Reason: Nausea And Vomiting Senna (Sennosides 8.6 Mg Tab) 17.2 mg PO QHS PRN PRN Reason: Constipation Simethicone (Simethicone 80 Mg Chew Tab) 80 mg PO Q6H PRN PRN Reason: Gas pain Witch Anabella/Glycerin (Witch Anabella/ Glycerin Pad) 1 each TP PRN PRN PRN Reason: Hemorrhoids/cleansing/soothing Last Admin: 08/04/21 08:09 Dose: 1 each Physical Examination - Physical Exam Narrative exam: Physical Exam: Constitutional: Alert, cooperative. No acute distress Head, Ears, Nose: Normocephalic, atraumatic. External ears, nose normal Eyes: Conjunctivae/corneas clear. No icterus. No ptosis. Neck: Supple, no meningeal signs Cardiovascular: S1, S2 + Respiratory: Good air entry, clear to auscultation bilaterally GI: Soft, non-tender; bowel sounds normal. No peritoneal signs Musculoskeletal: No pedal edema, no cyanosis. Morbidly obese Skin: No rash or abscess Hem/Lymphatic: No palpable cervical or supraclavicular nodes. No lymphangitis Psych: Mood ok. Affect normal Neurological: Awake, alert, oriented. No gross abnormality - Constitutional Vitals: Vital Signs Temp Pulse Resp BP Pulse Ox 101.3 F H 118 H 20 131/69 100 08/04/21 08:22 08/04/21 08:22 08/04/21 08:22 08/04/21 08:22 08/04/21 08:22 Temperature -Last 24 Hours Temperature 101.3 F Temperature 97.1 F Temperature 97.7 F Results - Labs CBC & Chem 7: 08/04/21 05:47 08/04/21 05:47 Labs: Abnormal lab results 08/03/21 08/04/21 08/04/21 Range/Units 09:19 05:47 05:47 WBC 19.4 H (4.5-11.0) K/mm3 Hgb 8.4 L (10.1-14.3) gm/dl Hct 26.6 L (30.3-42.9) % MCV 73 L (79-97) fl MCH 23 L (28-32) pg RDW 16.4 H (13.2-15.2) % Lymph % (Auto) 5.3 L (13.4-35.0) % Lymph # (Auto) 1.0 L (1.2-5.4) K/mm3 [place] # (Auto) 1.2 H (0.0-0.8) K/mm3 Seg Neutrophils % 88.3 H (40.0-70.0) % Seg Neuts % (Manual) 92.0 H (40.0-70.0) % Lymphocytes % (Manual) 2.0 L (13.4-35.0) % Seg Neutrophils # 17.1 H (1.8-7.7) K/mm3 Seg Neutrophils # Man 33.5 H (1.8-7.7) K/mm3 Lymphocytes # (Manual) 0.7 L (1.2-5.4) K/mm3 Sodium 134 L (137-145) mmol/L Carbon Dioxide 21 L (22-30) mmol/L Lactic Acid (0.7-2.0) mmol/L Calcium 8.2 L (8.4-10.2) mg/dL Alkaline Phosphatase 183 H (35-129) units/L Lactate Dehydrogenase 234 H (91-180) units/L Total Protein 5.7 L (6.3-8.2) g/dL Albumin 2.8 L (3.9-5) g/dL 08/04/21 08/04/21 Range/Units 05:47 07:19 WBC (4.5-11.0) K/mm3 Hgb (10.1-14.3) gm/dl Hct (30.3-42.9) % MCV (79-97) fl MCH (28-32) pg RDW (13.2-15.2) % Lymph % (Auto) (13.4-35.0) % Lymph # (Auto) (1.2-5.4) K/mm3 [place] # (Auto) (0.0-0.8) K/mm3 Seg Neutrophils % (40.0-70.0) % Seg Neuts % (Manual) (40.0-70.0) % Lymphocytes % (Manual) (13.4-35.0) % Seg Neutrophils # (1.8-7.7) K/mm3 Seg Neutrophils # Man (1.8-7.7) K/mm3 Lymphocytes # (Manual) (1.2-5.4) K/mm3 Sodium (137-145) mmol/L Carbon Dioxide (22-30) mmol/L Lactic Acid 2.60 H* 2.10 H* (0.7-2.0) mmol/L Calcium (8.4-10.2) mg/dL Alkaline Phosphatase (35-129) units/L Lactate Dehydrogenase (91-180) units/L Total Protein (6.3-8.2) g/dL Albumin (3.9-5) g/dL - Imaging and Cardiology Chest x-ray: report reviewed, image reviewed (no pneumonia) Assessment and Plan Cultures: 08/02/2021 urine culture: No growth 08/02/2021 blood culture: GNR A/P: 25-year-old female admitted to the hospital on 08/02/2021 was admitted from her OB clinic with active labor and blood-tinged amniotic fluid concerning for chorioamnionitis: #Sepsis present on admission, secondary to GNR bacteremia, secondary to chorioamnionitis: Status post on 08/02/2021. Clinically seems to be doing well. #Morbid obesity #Post status: baby in NICU, currently not breast feeding. Recs: -Given morbid obesity, Zosyn dose increased to 4.5 g every 6 hours -follow-up blood culture identification and susceptibility -monitor for resolution of fever and leukocytosis Jacob Mullins MD, FACP, [facility] O: [phone] F: [phone]
[2021-08-05] MEDS: PIPERACIL/TAZOBACTA 4.5/NS 100 4.5 GM/100 ML VIAL IV SCH ×3 (05:25→17:31)
[2021-08-05 09:34] LABS: Hematocrit 26.3 % (30.3-42.9); Hemoglobin 8.2 gm/dl (10.1-14.3); Mean Corpuscular HGB Conc 31 % (30-34); Mean Corpuscular Volume 73 fl (79-97); Platelet Count 364 K/mm3 (140-440); Red Cell Distribution Width 16.8 % (13.2-15.2)
[2021-08-05 09:50] LABS: Alanine Aminotransferase 17 units/L (7-56); Albumin 2.7 g/dL (3.9-5); BUN/Creatinine Ratio 8; Blood Urea Nitrogen 6 mg/dL (7-17); Hemolysis Index 0
--- NOTE | 2021-08-05 09:56 | Progress Note ---
Assessment and Plan POD#3 C/S with bacteremia prior to her procedure, now resolving well with antibiotics 1. Appreciate Dr. Mullins from ID and will continue zosyn IV abx until WBC less than 15 and afebrile x24hrs 2. Will check RUQ abdominal ultrasound and NPO for now 3. CBC and CMP results seen and will give k-DUR 40meq to be given later. 4. Pt taught proper hand washing techniques and hygiene care and FOB present per pt choice 5. Pt told to place dry [place] to keep incision dry All questions encouraged and answered. Subjective Date of service: 08/05/21 Principal diagnosis: POD#3 C/S with bacteremia, now afebrile Interval history: Pain controlled with meds. Denies dysuria. Vag bleed less than a period. Denies chest pain, SOB or palpitations. Denies N/V/F/C. Pt has passed flatus and had BM and pt states it was green in color. Objective - Constitutional Vitals: Vital Signs - 12hr 08/05/21 08/05/21 08/05/21 01:34 08:00 08:45 Temperature 98.1 F 98.2 F Pulse Rate 96 H 99 H Respiratory 20 18 Rate Blood Pressure 144/81 Blood Pressure 144/79 [Right] O2 Sat by Pulse 100 100 Oximetry O2 Sat by Pulse 100 Oximetry [ Anterior Bilateral Throughout] General appearance: Present: no acute distress - Neck Neck: normal ROM - Respiratory Respiratory effort: normal - Breasts Breasts: deferred - Cardiovascular Rhythm: regular Extremities: No edema - Gastrointestinal General gastrointestinal: Present: soft, non-tender, other (Incision with steristrips in place, damp after pt took shower.) - Genitourinary Female genitourinary: other (Lochia small; Fundus non-tender 1cm below umbilicus) - Integumentary Integumentary: warm, dry - Neurologic Neurologic: moves all extremities - Labs CBC & Chem 7: 08/05/21 09:19 08/05/21 09:19 Labs: Abnormal lab results 08/05/21 08/05/21 Range/Units 09:19 09:19 WBC 19.9 H (4.5-11.0) K/mm3 RBC 3.60 L (3.65-5.03) M/mm3 Hgb 8.2 L (10.1-14.3) gm/dl Hct 26.3 L (30.3-42.9) % MCV 73 L (79-97) fl MCH 23 L (28-32) pg RDW 16.8 H (13.2-15.2) % Sodium 136 L (137-145) mmol/L Potassium 3.4 L (3.6-5.0) mmol/L Carbon Dioxide 20 L (22-30) mmol/L BUN 6 L (7-17) mg/dL Glucose 114 H (65-100) mg/dL Calcium 8.0 L (8.4-10.2) mg/dL Alkaline Phosphatase 182 H (35-129) units/L Total Protein 5.8 L (6.3-8.2) g/dL Albumin 2.7 L (3.9-5) g/dL Medications & Allergies - Medications Allergies/Adverse Reactions: Allergies No Known Allergies Allergy (Verified 08/02/21 11:48) Home Medications: Home Medications Medication Instructions Recorded Confirmed Last Taken Type [facility] Tablet 1 tab PO DAILY 08/02/21 08/02/21 3 Days Ago History ~07/30/21 Ibuprofen [Motrin] 800 mg PO Q8HR PRN 21 Days #40 08/02/21 Unknown Rx tablet oxyCODONE /ACETAMINOPHEN [Percocet 1 tab PO Q4HR PRN 21 Days #30 tab 08/02/21 Unknown Rx 5/325] Active Medications: Generic Name Dose Route Start Last Admin Trade Name Freq PRN Reason Stop Dose Admin Acetaminophen 650 mg 08/02/21 11:30 08/04/21 15:59 Acetaminophen 325 Mg Tab PO 650 mg Q4H PRN Administration Pain, Mild (1-3) Carboprost Tromethamine 250 mcg 08/02/21 11:30 Carboprost Tromethamine 250 Mcg/1 Ml Inj IM ONCE PRN Uterine Bleeding Diphenhydramine HCl 12.5 mg 08/02/21 17:00 Diphenhydramine 50 Mg/Ml Vial IV Q2H PRN Itching Ferrous Sulfate 325 mg 08/03/21 20:00 08/04/21 20:12 Ferrous Sulfate 325 Mg Tab PO 325 mg TID RODOLFO Administration Hydrocortisone Acetate 25 mg 08/02/21 22:03 Hydrocortisone 25 Mg Rectal Supp CO BID PRN Hemorrhoids Hydromorphone HCl 0.5 mg 08/02/21 17:00 08/02/21 19:36 Hydromorphone 1 Mg/1 Ml Inj IV 0.5 mg Q4H PRN Administration breakthrough pain > 7/10 Lactated Ringer's 1,000 mls @ 125 mls/hr 08/02/21 11:30 08/03/21 11:24 Lactated Ringers IV 1,000 mls/hr DIRECT RODOLFO Administration Oxytocin/Sodium Chloride 30 units in 500 mls @ 40 mls/hr 08/02/21 22:03 Pitocin/Ns 30 Unit/500ml IV TITR RODOLFO Protocol Piperacillin Sod/Tazobactam Sod 4.5 gm in 100 mls @ 200 mls/hr 08/04/21 13:00 08/05/21 05:25 Zosyn/Ns 4.5gm/100ml IV 08/10/21 17:59 200 mls/hr Q6H RODOLFO Administration Protocol Ibuprofen 600 mg 08/02/21 22:03 Ibuprofen 600 Mg Tab PO Q6H PRN Pain, Mild (1-3) Ibuprofen 800 mg 08/02/21 22:03 08/03/21 19:22 Ibuprofen 800 Mg Tab PO 800 mg Q6H PRN Administration Pain, Moderate (4-6) Loperamide HCl 2 mg 08/02/21 11:30 Loperamide 2 Mg Cap PO ONCE PRN give with Hemabate Magnesium Hydroxide 30 ml 08/02/21 22:03 Magnesium Hydroxide (Mom) Oral Liqd Udc PO QHS PRN Constip Unrelieved By Senna Methylergonovine Maleate 0.2 mg 08/02/21 11:30 Methylergonovine Maleate 0.2 Mg/Ml Vial IM ONCE PRN Uterine Bleeding Mineral Oil 30 ml 08/02/21 22:00 Mineral Oil 30 Ml Oral Liqd PO QHS PRN Constipation Misoprostol 800 mcg 08/02/21 11:30 Misoprostol 200 Mcg Tab CO ONCE PRN Uterine Bleeding Morphine Sulfate 4 mg 08/02/21 22:03 08/02/21 22:54 Morphine 4 Mg/1 Ml Inj IV 4 mg Q4H PRN Administration Pain , Severe (7-10) Multi-Ingredient Ointment 1 applic 08/02/21 22:03 08/04/21 09:46 Lanolin/Zinc/Dimethicone (Lansinoh) 7 Gm TP 1 applic PRN PRN Administration dryness/cracking Multivitamins/Iron/Calcium 1 each 08/03/21 10:00 08/04/21 09:46 [id number] Fumarate-Folic Acid Vit Tab PO 1 each QDAY RODOLFO Administration Naloxone HCl 0.1 mg 08/02/21 22:03 Naloxone 0.4 Mg/1 Ml Inj IV Q2MIN PRN Res Rate </= 8 or 02 SAT < 92% Ondansetron HCl 4 mg 08/02/21 17:00 Ondansetron 4 Mg/2 Ml Inj IV Q8H PRN Nausea And Vomiting Oxycodone/Acetaminophen 2 tab 08/02/21 22:03 08/04/21 00:00 Oxycodone /Acetaminophen 5-325mg Tab PO 2 tab Q6H PRN Administration Pain , Severe (7-10) Oxytocin 10 unit 08/02/21 11:30 Oxytocin 10 Unit/1 Ml Inj IM ONCE PRN Uterine Bleeding Promethazine HCl 25 mg 08/02/21 11:30 Promethazine 25 Mg Tab PO Q6H PRN Nausea And Vomiting Senna 17.2 mg 08/02/21 22:03 Sennosides 8.6 Mg Tab PO QHS PRN Constipation Simethicone 80 mg 08/02/21 22:03 Simethicone 80 Mg Chew Tab PO Q6H PRN Gas pain Witch Anabella/Glycerin 1 each 08/02/21 22:03 08/04/21 08:09 Witch Anabella/ Glycerin Pad TP 1 each PRN PRN Administration Hemorrhoids/cleansing/soothing
[2021-08-05] MEDS: FERROUS SULFATE 325 MG TAB PO SCH (11:36)
[2021-08-05] MEDS: PRENATAL VIT27-FE FUMARATE-FOLIC ACID VIT TAB PO SCH (11:36)
--- NOTE | 2021-08-05 13:43 | Progress Note ---
Assessment and Plan Cultures: 08/02/2021 urine culture: No growth 08/02/2021 blood culture: E.coli A/P: 25-year-old female admitted to the hospital on 08/02/2021 was admitted from her OB clinic with active labor and blood-tinged amniotic fluid concerning for chorioamnionitis: #Sepsis present on admission, secondary to GNR bacteremia, secondary to chorioamnionitis: Status post on 08/02/2021. Clinically seems to be doing well. #Morbid obesity #Post status: baby in NICU, breast feeding #Mild LFT elevation Recs: -continue IV Zosyn 4.5 g every 6 hours while inpatient -f/u RUQ US -recheck WBC in AM, if improved, OK for discharge on PO Augmentin 875 mg BID to complete total 10 days of therapy -if WBC remains elevated, obtain CT abdomen pelvis with IV contrast to look for any other source of infection d/w Dr. Abdelrahman Mullins MD, FACP, [facility] ([facility] O: [phone] F: [phone] Subjective Date of service: 08/05/21 Principal diagnosis: POD#3 C/S with bacteremia, now afebrile Interval history: No fever. Has no complaints. Had a normal BM today. No urinary complaints. Abdominal pain improving, down to 2/10. Objective - Exam Narrative Exam: Physical Exam: Constitutional: Alert, cooperative. No acute distress Head, Ears, Nose: Normocephalic, atraumatic. External ears, nose normal Eyes: Conjunctivae/corneas clear. No icterus. No ptosis. Neck: Supple, no meningeal signs Cardiovascular: S1, S2 + Respiratory: Good air entry, clear to auscultation bilaterally GI: Soft, non-tender; bowel sounds normal. No peritoneal signs Musculoskeletal: No pedal edema, no cyanosis. Morbidly obese Skin: No rash or abscess Hem/Lymphatic: No palpable cervical or supraclavicular nodes. No lymphangitis Psych: Mood ok. Affect normal Neurological: Awake, alert, oriented. No gross abnormality - Constitutional Vitals: Vital Signs Temp Pulse Resp BP Pulse Ox 98.1 F 95 H 18 136/79 100 08/05/21 11:17 08/05/21 11:17 08/05/21 11:17 08/05/21 11:17 08/05/21 11:17 Temperature -Last 24 Hours Temperature 98.1 F Temperature 98.2 F Temperature 98.1 F Temperature 98.8 F - Labs CBC & Chem 7: 08/05/21 09:19 08/05/21 09:19 Labs: Abnormal lab results 08/05/21 08/05/21 Range/Units 09:19 09:19 WBC 19.9 H (4.5-11.0) K/mm3 RBC 3.60 L (3.65-5.03) M/mm3 Hgb 8.2 L (10.1-14.3) gm/dl Hct 26.3 L (30.3-42.9) % MCV 73 L (79-97) fl MCH 23 L (28-32) pg RDW 16.8 H (13.2-15.2) % Sodium 136 L (137-145) mmol/L Potassium 3.4 L (3.6-5.0) mmol/L Carbon Dioxide 20 L (22-30) mmol/L BUN 6 L (7-17) mg/dL Glucose 114 H (65-100) mg/dL Calcium 8.0 L (8.4-10.2) mg/dL Alkaline Phosphatase 182 H (35-129) units/L Total Protein 5.8 L (6.3-8.2) g/dL Albumin 2.7 L (3.9-5) g/dL
[2021-08-05 15:54] LABS: Band Neutrophils # (Manual) 0.4 K/mm3; Basophils % (Manual) 0 % (0.0-1.8); Total Cells Counted 100
[2021-08-05 15:55] LABS: Anisocytosis 1+; Hypochromasia 1+; Platelet Estimate Consistent w Auto
[2021-08-05] MEDS: LACTATED RINGERS 1,000 ML IV SCH (17:25)
[2021-08-05] MEDS ORDERED: POTASSIUM CHLORIDE ER 20 MEQ TAB PO ONE (18:00)
--- NOTE | 2021-08-05 18:31 | Ultrasound Report ---
LIMITED RUQ ABDOMINAL ULTRASOUND INDICATION / CLINICAL INFORMATION: right upper quadrant ultrasound. COMPARISON: No relevant prior imaging study available. FINDINGS: PANCREAS: Visualized portions of the pancreas are within normal limits. ABDOMINAL AORTA: No significant abnormality. IVC: No significant abnormality. LIVER: The liver measures 18 cm in length. Mild diffuse increased echogenicity. PORTAL VEIN: Normal hepatopedal blood flow in the main portal vein. GALLBLADDER: The gallbladder is unremarkable. There is no cholelithiasis, gallbladder wall thickening , or pericholecystic fluid. BILE DUCTS: No significant abnormality. Common bile duct measures 2 mm. FREE FLUID: None. ADDITIONAL FINDINGS: None. IMPRESSION: 1. Mild hepatomegaly with fatty infiltration. 2. Otherwise, no significant abnormality. Signer Name: Brannon Harrell MD Signed: 08/05/2021 6:26 PM Workstation Name: [id number]
[2021-08-06] MEDS: PIPERACIL/TAZOBACTA 4.5/NS 100 4.5 GM/100 ML VIAL IV SCH ×3 (00:09→12:35)
[2021-08-06] MEDS: FERROUS SULFATE 325 MG TAB PO SCH ×3 (00:09→23:00)
--- NOTE | 2021-08-06 06:39 | Progress Note ---
Assessment and Plan POD#4 with C/S with bacteremia resolving now with one episode of diarrhea, mild hypokalemia 1. Aware of C. diff side effect of meds, will send next sample. Also will give flagyl if C.diff positive 2. Await repeat CBC and CMP today 3. Will discuss with ID alternate oral med since augmentin also has C.diff side effect 4. lengthy discussion with pt concerning discharge from the hospital and staying is not dependent of baby's remaining Will consider discharge home tomorrow if pt's condition continue to improve Subjective Date of service: 08/06/21 Principal diagnosis: POD#4 C/S with bacteremia, now afebrile Interval history: pt states she had loose stool x1 green yesterday. Pain controlled with meds. Pt wants to remain in the hospital as long as her baby is here. pt voids without difficulty. pt is breast pumping for baby and the city anticipates snow later today. Nurse called me overnight concerned about pt having diarrhea but later confirmed with pt that she had only one BM and flagyl ordered was not given nor was any stool sample collected. Objective - Constitutional Vitals: Vital Signs - 12hr 08/05/21 08/06/21 20:20 00:00 Temperature 98.6 F Pulse Rate 76 Respiratory 18 Rate Blood Pressure 105/78 [Right] O2 Sat by Pulse 98 Oximetry [ Anterior Bilateral Throughout] General appearance: Present: no acute distress - Neck Neck: normal ROM - Respiratory Respiratory effort: normal - Breasts Breasts: deferred - Cardiovascular Rhythm: regular Extremities: No edema - Gastrointestinal General gastrointestinal: Present: soft, non-tender, other (Incision with steristrips in place C/DI) - Genitourinary Female genitourinary: other (Fundus firm, non-tender 2cm below umbilicus) - Integumentary Integumentary: warm, dry - Neurologic Neurologic: moves all extremities - Psychiatric Psychiatric: cooperative - Labs CBC & Chem 7: 08/05/21 09:19 08/05/21 09:19 Labs: Abnormal lab results 08/05/21 08/05/21 Range/Units 09:19 09:19 WBC 19.9 H (4.5-11.0) K/mm3 RBC 3.60 L (3.65-5.03) M/mm3 Hgb 8.2 L (10.1-14.3) gm/dl Hct 26.3 L (30.3-42.9) % MCV 73 L (79-97) fl MCH 23 L (28-32) pg RDW 16.8 H (13.2-15.2) % Seg Neuts % (Manual) 84.0 H (40.0-70.0) % Lymphocytes % (Manual) 9.0 L (13.4-35.0) % Seg Neutrophils # Man 16.7 H (1.8-7.7) K/mm3 Sodium 136 L (137-145) mmol/L Potassium 3.4 L (3.6-5.0) mmol/L Carbon Dioxide 20 L (22-30) mmol/L BUN 6 L (7-17) mg/dL Glucose 114 H (65-100) mg/dL Calcium 8.0 L (8.4-10.2) mg/dL Alkaline Phosphatase 182 H (35-129) units/L Total Protein 5.8 L (6.3-8.2) g/dL Albumin 2.7 L (3.9-5) g/dL Medications & Allergies - Medications Allergies/Adverse Reactions: Allergies No Known Allergies Allergy (Verified 08/02/21 11:48) Home Medications: Home Medications Medication Instructions Recorded Confirmed Last Taken Type [facility] Vit[facility] Tablet 1 tab PO DAILY 08/02/21 08/02/21 3 Days Ago History ~07/30/21 Ibuprofen [Motrin] 800 mg PO Q8HR PRN 21 Days #40 08/02/21 Unknown Rx tablet oxyCODONE /ACETAMINOPHEN [Percocet 1 tab PO Q4HR PRN 21 Days #30 tab 08/02/21 Unknown Rx 5/325] Active Medications: Generic Name Dose Route Start Last Admin Trade Name Freq PRN Reason Stop Dose Admin Acetaminophen 650 mg 08/02/21 11:30 08/04/21 15:59 Acetaminophen 325 Mg Tab PO 650 mg Q4H PRN Administration Pain, Mild (1-3) Carboprost Tromethamine 250 mcg 08/02/21 11:30 Carboprost Tromethamine 250 Mcg/1 Ml Inj IM ONCE PRN Uterine Bleeding Diphenhydramine HCl 12.5 mg 08/02/21 17:00 Diphenhydramine 50 Mg/Ml Vial IV Q2H PRN Itching Ferrous Sulfate 325 mg 08/03/21 20:00 08/06/21 00:09 Ferrous Sulfate 325 Mg Tab PO 325 mg TID RODOLFO Administration Hydrocortisone Acetate 25 mg 08/02/21 22:03 Hydrocortisone 25 Mg Rectal Supp [place] BID PRN Hemorrhoids Hydromorphone HCl 0.5 mg 08/02/21 17:00 08/02/21 19:36 Hydromorphone 1 Mg/1 Ml Inj IV 0.5 mg Q4H PRN Administration breakthrough pain > 7/10 Lactated Ringer's 1,000 mls @ 125 mls/hr 08/02/21 11:30 08/05/21 17:25 Lactated Ringers IV 1,000 mls/hr DIRECT RODOLFO Administration Oxytocin/Sodium Chloride 30 units in 500 mls @ 40 mls/hr 08/02/21 22:03 Pitocin/Ns 30 Unit/500ml IV TITR RODOLFO Protocol Piperacillin Sod/Tazobactam Sod 4.5 gm in 100 mls @ 200 mls/hr 08/04/21 13:00 08/06/21 05:45 Zosyn/Ns 4.5gm/100ml IV 08/10/21 17:59 200 mls/hr Q6H RODOLFO Administration Protocol Ibuprofen 600 mg 08/02/21 22:03 Ibuprofen 600 Mg Tab PO Q6H PRN Pain, Mild (1-3) Ibuprofen 800 mg 08/02/21 22:03 08/03/21 19:22 Ibuprofen 800 Mg Tab PO 800 mg Q6H PRN Administration Pain, Moderate (4-6) Loperamide HCl 2 mg 08/02/21 11:30 Loperamide 2 Mg Cap PO ONCE PRN give with Hemabate Magnesium Hydroxide 30 ml 08/02/21 22:03 Magnesium Hydroxide (Mom) Oral Liqd Udc PO QHS PRN Constip Unrelieved By Senna Methylergonovine Maleate 0.2 mg 08/02/21 11:30 Methylergonovine Maleate 0.2 Mg/Ml Vial IM ONCE PRN Uterine Bleeding Mineral Oil 30 ml 08/02/21 22:00 Mineral Oil 30 Ml Oral Liqd PO QHS PRN Constipation Misoprostol 800 mcg 08/02/21 11:30 Misoprostol 200 Mcg Tab [place] ONCE PRN Uterine Bleeding Morphine Sulfate 4 mg 08/02/21 22:03 08/02/21 22:54 Morphine 4 Mg/1 Ml Inj IV 4 mg Q4H PRN Administration Pain , Severe (7-10) Multi-Ingredient Ointment 1 applic 08/02/21 22:03 08/04/21 09:46 Lanolin/Zinc/Dimethicone (Lansinoh) 7 Gm TP 1 applic PRN PRN Administration dryness/cracking Multivitamins/Iron/Calcium 1 each 08/03/21 10:00 08/05/21 11:36 [id number] Fumarate-Folic Acid Vit Tab PO Not Given QDAY RODOLFO Naloxone HCl 0.1 mg 08/02/21 22:03 Naloxone 0.4 Mg/1 Ml Inj IV Q2MIN PRN Res Rate </= 8 or 02 SAT < 92% Ondansetron HCl 4 mg 08/02/21 17:00 Ondansetron 4 Mg/2 Ml Inj IV Q8H PRN Nausea And Vomiting Oxycodone/Acetaminophen 2 tab 08/02/21 22:03 08/04/21 00:00 Oxycodone /Acetaminophen 5-325mg Tab PO 2 tab Q6H PRN Administration Pain , Severe (7-10) Oxytocin 10 unit 08/02/21 11:30 Oxytocin 10 Unit/1 Ml Inj IM ONCE PRN Uterine Bleeding Promethazine HCl 25 mg 08/02/21 11:30 Promethazine 25 Mg Tab PO Q6H PRN Nausea And Vomiting Senna 17.2 mg 08/02/21 22:03 Sennosides 8.6 Mg Tab PO QHS PRN Constipation Simethicone 80 mg 08/02/21 22:03 08/05/21 17:28 Simethicone 80 Mg Chew Tab PO 80 mg Q6H PRN Administration Gas pain Witch Anabella/Glycerin 1 each 08/02/21 22:03 08/04/21 08:09 Witch Anabella/ Glycerin Pad TP 1 each PRN PRN Administration Hemorrhoids/cleansing/soothing
[2021-08-06] MEDS: IBUPROFEN 600 MG TAB PO PRN ×2 (11:17→22:59)
[2021-08-06] MEDS: PRENATAL VIT27-FE FUMARATE-FOLIC ACID VIT TAB PO SCH (11:18)
--- NOTE | 2021-08-06 12:37 | Progress Note ---
Assessment and Plan Cultures: 08/02/2021 urine culture: No growth 08/02/2021 blood culture: E.coli A/P: 25-year-old female admitted to the hospital on 08/02/2021 was admitted from her OB clinic with active labor and blood-tinged amniotic fluid concerning for chorioamnionitis: #Sepsis present on admission, secondary to GNR bacteremia, secondary to chorioamnionitis: Status post on 08/02/2021. Clinically seems to be doing well. Abdominal ultrasound showed fatty infiltration, no other abnormality #Morbid obesity #Post status: baby in NICU, breast feeding #Mild LFT elevation Recs: -Likely antibiotic associated diarrhea (2 yesterday, 2 today), Zosyn switched to Ceftriaxone + flagyl -If leukocytosis does not resolve, consider CT abdomen pelvis with IV contrast -Does not need to be on contact isolation due to E. coli bacteremia, discussed with RN -when better, can discharge on PO Augmentin to complete remainder of abx therapy Jacob Mullins MD, FACRigoberto, [facility] O: [phone] F: [phone] Subjective Date of service: 08/06/21 Principal diagnosis: POD#4 C/S with bacteremia, now afebrile Interval history: No fever. Denies any abdominal pain. Feels back to normal. Reports 2 watery bowel movements yesterday and 2 today. Objective - Exam Narrative Exam: Physical Exam: Constitutional: Alert, cooperative. No acute distress Head, Ears, Nose: Normocephalic, atraumatic. External ears, nose normal Eyes: Conjunctivae/corneas clear. No icterus. No ptosis. Neck: Supple, no meningeal signs Cardiovascular: S1, S2 + Respiratory: Good air entry, clear to auscultation bilaterally GI: Soft, non-tender; bowel sounds normal. No peritoneal signs Musculoskeletal: No pedal edema, no cyanosis. Morbidly obese Skin: No rash or abscess Hem/Lymphatic: No palpable cervical or supraclavicular nodes. No lymphangitis Psych: Mood ok. Affect normal Neurological: Awake, alert, oriented. No gross abnormality - Constitutional Vitals: Vital Signs Temp Pulse Resp BP Pulse Ox 98.0 F 79 18 128/74 99 08/06/21 09:29 08/06/21 09:29 08/06/21 09:29 08/06/21 09:29 08/06/21 09:29 Temperature -Last 24 Hours Temperature 98.0 F Temperature 98.6 F Temperature 97.8 F - Labs CBC & Chem 7: 08/05/21 09:19 08/05/21 09:19 Labs: Abnormal lab results 08/05/21 Range/Units 09:19 Seg Neuts % (Manual) 84.0 H (40.0-70.0) % Lymphocytes % (Manual) 9.0 L (13.4-35.0) % Seg Neutrophils # Man 16.7 H (1.8-7.7) K/mm3
[2021-08-06] MEDS ORDERED: cefTRIAXone/NS 2 GM/100 ML 2 GM/100 ML BAG IV SCH (13:00)
[2021-08-06 13:52] LABS: Hematocrit 24.1 % (30.3-42.9); Hemoglobin 7.6 gm/dl (10.1-14.3); Mean Corpuscular HGB Conc 31 % (30-34); Mean Corpuscular Volume 74 fl (79-97); Platelet Count 367 K/mm3 (140-440); Red Blood Count 3.27 M/mm3 (3.65-5.03); Red Cell Distribution Width 16.8 % (13.2-15.2)
[2021-08-06 14:16] LABS: Alanine Aminotransferase 22 units/L (7-56); Albumin 2.8 g/dL (3.9-5); BUN/Creatinine Ratio 10; Blood Urea Nitrogen 8 mg/dL (7-17); Hemolysis Index 2
[2021-08-06 15:05] LABS: Anisocytosis 1+; Band Neutrophils # (Manual) 0.6 K/mm3; Basophils % (Manual) 0 % (0.0-1.8); Myelocytes # (Manual) 0.2 K/mm3; Total Cells Counted 100
[2021-08-06 15:06] LABS: Hypochromasia Few; Large Platelets Few; Platelet Estimate Consistent w Auto
[2021-08-06] MEDS: metroNIDAZOLE 500 MG TAB PO SCH (16:55)
[2021-08-06] MEDS: ASCORBIC ACID 500 MG TAB PO SCH (23:00)
[2021-08-07] MEDS: metroNIDAZOLE 500 MG TAB PO SCH ×3 (01:37→18:18)
--- NOTE | 2021-08-07 09:06 | Progress Note ---
Assessment and Plan POD#5 C/S with bacteremia resolving well, on meds for C. diff and asymptomatic anemia; bilateral edema to lower extrem 1. Follow cbc with wbc trends and hgb; continue iron and vitamin C supplement 2. Lasix IV 40mg for edema 3. routine post op care 4. Appreciate ID. team All questions encouraged and answered Subjective Date of service: 08/07/21 Principal diagnosis: POD#5 C/S with bacteremia resolving Interval history: pt c/o tightness to her legs. pt is able to walk. Vag bleed is scant. Denies SOB, palpitations or dizziness or chest pain. pt is voiding without difficulty. Objective - Constitutional Vitals: Vital Signs - 12hr 08/06/21 08/07/21 23:15 02:05 Temperature 98.6 F Pulse Rate 77 Respiratory 20 Rate Blood Pressure 123/74 O2 Sat by Pulse 87 Oximetry O2 Sat by Pulse 100 Oximetry [ Anterior Bilateral Throughout] General appearance: Present: no acute distress - Respiratory Respiratory effort: normal - Breasts Breasts: deferred - Cardiovascular Rhythm: regular Extremities: No edema Extremity abnormal: edema (bilateral lower extremity) - Gastrointestinal General gastrointestinal: Present: soft, non-tender, other (Incision with steristrips C/D/I) - Genitourinary Female genitourinary: other (Lochia scant; Fundus firm, non-tender 3cm below the umbilicus) - Neurologic Neurologic: moves all extremities - Psychiatric Psychiatric: cooperative - Labs CBC & Chem 7: 08/06/21 13:18 08/06/21 13:18 Labs: Abnormal lab results 08/06/21 08/06/21 Range/Units 13:18 13:18 WBC 18.4 H (4.5-11.0) K/mm3 RBC 3.27 L (3.65-5.03) M/mm3 Hgb 7.6 L (10.1-14.3) gm/dl Hct 24.1 L (30.3-42.9) % MCV 74 L (79-97) fl MCH 23 L (28-32) pg RDW 16.8 H (13.2-15.2) % Seg Neutrophils # Man 12.9 H (1.8-7.7) K/mm3 Monocytes # (Manual) 0.9 H (0.0-0.8) K/mm3 Eosinophils # (Manual) 0.6 H (0.0-0.4) K/mm3 Sodium 135 L (137-145) mmol/L Carbon Dioxide 19 L (22-30) mmol/L Calcium 8.0 L (8.4-10.2) mg/dL Alkaline Phosphatase 172 H (35-129) units/L Total Protein 5.6 L (6.3-8.2) g/dL Albumin 2.8 L (3.9-5) g/dL Medications & Allergies - Medications Allergies/Adverse Reactions: Allergies No Known Allergies Allergy (Verified 08/02/21 11:48) Home Medications: Home Medications Medication Instructions Recorded Confirmed Last Taken Type [facility] Vit[facility] Tablet 1 tab PO DAILY 08/02/21 08/02/21 3 Days Ago History ~07/30/21 Ibuprofen [Motrin] 800 mg PO Q8HR PRN 21 Days #40 08/02/21 Unknown Rx tablet oxyCODONE /ACETAMINOPHEN [Percocet 1 tab PO Q4HR PRN 21 Days #30 tab 08/02/21 Unknown Rx 5/325] Active Medications: Generic Name Dose Route Start Last Admin Trade Name Freq PRN Reason Stop Dose Admin Acetaminophen 650 mg 08/02/21 11:30 08/04/21 15:59 Acetaminophen 325 Mg Tab PO 650 mg Q4H PRN Administration Pain, Mild (1-3) Ascorbic Acid 500 mg 08/06/21 17:28 08/06/21 23:00 Ascorbic Acid 500 Mg Tab PO 500 mg TID RODOLFO Administration Carboprost Tromethamine 250 mcg 08/02/21 11:30 Carboprost Tromethamine 250 Mcg/1 Ml Inj IM ONCE PRN Uterine Bleeding Diphenhydramine HCl 12.5 mg 08/02/21 17:00 Diphenhydramine 50 Mg/Ml Vial IV Q2H PRN Itching Ferrous Sulfate 325 mg 08/03/21 20:00 08/06/21 23:00 Ferrous Sulfate 325 Mg Tab PO 325 mg TID RODOLFO Administration Hydrocortisone Acetate 25 mg 08/02/21 22:03 Hydrocortisone 25 Mg Rectal Supp [place] BID PRN Hemorrhoids Hydromorphone HCl 0.5 mg 08/02/21 17:00 08/02/21 19:36 Hydromorphone 1 Mg/1 Ml Inj IV 0.5 mg Q4H PRN Administration breakthrough pain > 7/10 Lactated Ringer's 1,000 mls @ 125 mls/hr 08/02/21 11:30 08/05/21 17:25 Lactated Ringers IV 1,000 mls/hr DIRECT RODOLFO Administration Oxytocin/Sodium Chloride 30 units in 500 mls @ 40 mls/hr 08/02/21 22:03 Pitocin/Ns 30 Unit/500ml IV TITR RODOLFO Protocol Ceftriaxone Sodium 2 gm in 100 mls @ 200 mls/hr 08/06/21 13:00 08/06/21 17:21 Rocephin/Ns 2 Gm/100 Ml IV 200 mls/hr Q24HR RODOLFO Administration Protocol Ibuprofen 600 mg 08/02/21 22:03 08/06/21 22:59 Ibuprofen 600 Mg Tab PO 600 mg Q6H PRN Administration Pain, Mild (1-3) Ibuprofen 800 mg 08/02/21 22:03 08/03/21 19:22 Ibuprofen 800 Mg Tab PO 800 mg Q6H PRN Administration Pain, Moderate (4-6) Loperamide HCl 2 mg 08/02/21 11:30 Loperamide 2 Mg Cap PO ONCE PRN give with Hemabate Magnesium Hydroxide 30 ml 08/02/21 22:03 Magnesium Hydroxide (Mom) Oral Liqd Udc PO QHS PRN Constip Unrelieved By Senna Methylergonovine Maleate 0.2 mg 08/02/21 11:30 Methylergonovine Maleate 0.2 Mg/Ml Vial IM ONCE PRN Uterine Bleeding Metronidazole 500 mg 08/06/21 14:00 08/07/21 01:37 Metronidazole 500 Mg Tab PO 500 mg Q8HR [facility] Administration Protocol Mineral Oil 30 ml 08/02/21 22:00 Mineral Oil 30 Ml Oral Liqd PO QHS PRN Constipation Misoprostol 800 mcg 08/02/21 11:30 Misoprostol 200 Mcg Tab [place] ONCE PRN Uterine Bleeding Morphine Sulfate 4 mg 08/02/21 22:03 08/02/21 22:54 Morphine 4 Mg/1 Ml Inj IV 4 mg Q4H PRN Administration Pain , Severe (7-10) Multi-Ingredient Ointment 1 applic 08/02/21 22:03 08/04/21 09:46 Lanolin/Zinc/Dimethicone (Lansinoh) 7 Gm TP 1 applic PRN PRN Administration dryness/cracking Multivitamins/Iron/Calcium 1 each 08/03/21 10:00 08/06/21 11:18 [id number] Fumarate-Folic Acid Vit Tab PO 1 each QDAY RODOLFO Administration Naloxone HCl 0.1 mg 08/02/21 22:03 Naloxone 0.4 Mg/1 Ml Inj IV Q2MIN PRN Res Rate </= 8 or 02 SAT < 92% Ondansetron HCl 4 mg 08/02/21 17:00 Ondansetron 4 Mg/2 Ml Inj IV Q8H PRN Nausea And Vomiting Oxycodone/Acetaminophen 2 tab 08/02/21 22:03 08/04/21 00:00 Oxycodone /Acetaminophen 5-325mg Tab PO 2 tab Q6H PRN Administration Pain , Severe (7-10) Oxytocin 10 unit 08/02/21 11:30 Oxytocin 10 Unit/1 Ml Inj IM ONCE PRN Uterine Bleeding Promethazine HCl 25 mg 08/02/21 11:30 Promethazine 25 Mg Tab PO Q6H PRN Nausea And Vomiting Senna 17.2 mg 08/02/21 22:03 Sennosides 8.6 Mg Tab PO QHS PRN Constipation Simethicone 80 mg 08/02/21 22:03 08/05/21 17:28 Simethicone 80 Mg Chew Tab PO 80 mg Q6H PRN Administration Gas pain Witch Anabella/Glycerin 1 each 08/02/21 22:03 08/04/21 08:09 Witch Anabella/ Glycerin Pad TP 1 each PRN PRN Administration Hemorrhoids/cleansing/soothing
[2021-08-07] MEDS: FERROUS SULFATE 325 MG TAB PO SCH ×3 (09:09→20:59)
[2021-08-07] MEDS: PRENATAL VIT27-FE FUMARATE-FOLIC ACID VIT TAB PO SCH (09:10)
[2021-08-07] MEDS: ASCORBIC ACID 500 MG TAB PO SCH ×3 (09:10→20:59)
[2021-08-07 09:22] LABS: Hematocrit 25.8 % (30.3-42.9); Hemoglobin 7.9 gm/dl (10.1-14.3); Mean Corpuscular HGB Conc 31 % (30-34); Mean Corpuscular Volume 75 fl (79-97); Platelet Count 392 K/mm3 (140-440); Red Blood Count 3.44 M/mm3 (3.65-5.03); Red Cell Distribution Width 16.9 % (13.2-15.2)
[2021-08-07] MEDS ORDERED: FUROSEMIDE 40 MG/4 ML INJ IV ONE (10:00)
[2021-08-07 13:06] LABS: Band Neutrophils # (Manual) 0.2 K/mm3; Basophils % (Manual) 0 % (0.0-1.8); Total Cells Counted 100
[2021-08-07 13:08] LABS: Anisocytosis 1+; Hypochromasia 1+; Platelet Estimate Consistent w Auto
[2021-08-07] MEDS: IBUPROFEN 800 MG TAB PO PRN (13:27)
[2021-08-07] MEDS: cephALEXin 500 MG CAP PO SCH ×2 (14:52→23:32)
[2021-08-08] MEDS: metroNIDAZOLE 500 MG TAB PO SCH ×3 (01:36→17:59)
[2021-08-08] MEDS: IBUPROFEN 800 MG TAB PO PRN ×2 (05:37→20:14)
[2021-08-08] MEDS: cephALEXin 500 MG CAP PO SCH ×3 (05:37→18:00)
[2021-08-08 06:44] LABS: Hematocrit 24.6 % (30.3-42.9); Hemoglobin 7.6 gm/dl (10.1-14.3); Mean Corpuscular HGB Conc 31 % (30-34); Mean Corpuscular Volume 75 fl (79-97); Platelet Count 440 K/mm3 (140-440); Red Cell Distribution Width 17.2 % (13.2-15.2)
[2021-08-08 07:57] LABS: Anisocytosis 1+; Basophils % (Manual) 0 % (0.0-1.8); Hypochromasia 1+; Myelocytes # (Manual) 0.5 K/mm3; Promyelocytes # (Manual) 0.2 K/mm3; Total Cells Counted 100
[2021-08-08 07:58] LABS: Platelet Estimate Consistent w Auto; Tear Drop Cells 1+
--- NOTE | 2021-08-08 08:38 | Progress Note ---
Assessment and Plan POD#6 with bacteremia, afebrile however with persistent leucocytosis, asymptomatic anemia 1. Appreciate ID and will continue oral antibiotics keflex 1gm every 6hrs and flagyl 500mg every 8hr, pt declines CT abd/pelvis; will repeat cbc in 24hrs for the trend with pt refusal of CT scan. I spoke with Dr. Mullins and he believes with the organism, keflex and augmentin are the same with coverage, therefore I can observe the pt for an additional 24hrs. 2. Will continue oral iron and vit C supplement 3. will give oral lasix 40mg x2 days with improvement in her edema 4. routine post op care Will consider discharge tomorrow; plan of care discussed and pt agreeable. Subjective Date of service: 08/08/21 Principal diagnosis: POD#6 C/S with bacteremia resolving Interval history: pt says she feels fine, scant vag bleed and denies urinary frequency or dysuria. Denies any symtoms of anemia. Denies diarrhea. pt is breast pumping for baby in NICU. Pt declines any more IV restarts or CT of abd and pelvis. pt also does not want to go home today without her baby being discharged in the am Objective - Constitutional Vitals: Vital Signs - 12hr 08/08/21 08/08/21 00:37 05:37 Temperature 98.0 F Pulse Rate 75 Respiratory 20 18 Rate Blood Pressure 134/82 O2 Sat by Pulse 100 Oximetry General appearance: Present: no acute distress - Breasts Breasts: deferred - Cardiovascular Rhythm: regular Extremity abnormal: edema (slightly less than yesterday) - Gastrointestinal General gastrointestinal: Present: soft, non-tender, other (incision C/D/I with steristrips) - Genitourinary Female genitourinary: other (Uterus firm 3cm below umbilicus and non-tender. Lochia scant) - Neurologic Neurologic: moves all extremities - Psychiatric Psychiatric: cooperative - Labs CBC & Chem 7: 08/08/21 06:31 08/06/21 13:18 Labs: Abnormal lab results 08/07/21 08/08/21 Range/Units 08:35 06:31 WBC 16.7 H 17.9 H (4.5-11.0) K/mm3 RBC 3.44 L 3.30 L (3.65-5.03) M/mm3 Hgb 7.9 L 7.6 L (10.1-14.3) gm/dl Hct 25.8 L 24.6 L (30.3-42.9) % MCV 75 L 75 L (79-97) fl MCH 23 L 23 L (28-32) pg RDW 16.9 H 17.2 H (13.2-15.2) % Seg Neuts % (Manual) 75.0 H 74.0 H (40.0-70.0) % Lymphocytes % (Manual) 12.0 L 10.0 L (13.4-35.0) % Monocytes % (Manual) 11.0 H 9.0 H (0.0-7.3) % Nucleated RBC % 1.0 H (0.0-0.9) % Seg Neutrophils # Man 12.5 H 13.2 H (1.8-7.7) K/mm3 Monocytes # (Manual) 1.8 H 1.6 H (0.0-0.8) K/mm3 Medications & Allergies - Medications Allergies/Adverse Reactions: Allergies No Known Allergies Allergy (Verified 08/02/21 11:48) Home Medications: Home Medications Medication Instructions Recorded Confirmed Last Taken Type [facility] Vitamins Tablet 1 tab PO DAILY 08/02/21 08/02/21 3 Days Ago History ~07/30/21 Ibuprofen [Motrin] 800 mg PO Q8HR PRN 21 Days #40 08/02/21 Unknown Rx tablet oxyCODONE /ACETAMINOPHEN [Percocet 1 tab PO Q4HR PRN 21 Days #30 tab 08/02/21 Unknown Rx 5/325] Active Medications: Generic Name Dose Route Start Last Admin Trade Name Enma PRN Reason Stop Dose Admin Acetaminophen 650 mg 08/02/21 11:30 08/04/21 15:59 Acetaminophen 325 Mg Tab PO 650 mg Q4H PRN Administration Pain, Mild (1-3) Ascorbic Acid 500 mg 08/06/21 17:28 08/07/21 20:59 Ascorbic Acid 500 Mg Tab PO 500 mg TID RODOLFO Administration Carboprost Tromethamine 250 mcg 08/02/21 11:30 Carboprost Tromethamine 250 Mcg/1 Ml Inj IM ONCE PRN Uterine Bleeding Cephalexin 1,000 mg 08/07/21 15:00 08/08/21 05:37 Cephalexin 500 Mg Cap PO 1,000 mg Q6HR RODOLFO Administration Protocol Diphenhydramine HCl 12.5 mg 08/02/21 17:00 Diphenhydramine 50 Mg/Ml Vial IV Q2H PRN Itching Ferrous Sulfate 325 mg 08/03/21 20:00 08/07/21 20:59 Ferrous Sulfate 325 Mg Tab PO 325 mg TID RODOLFO Administration Hydrocortisone Acetate 25 mg 08/02/21 22:03 Hydrocortisone 25 Mg Rectal Supp [place] BID PRN Hemorrhoids Hydromorphone HCl 0.5 mg 08/02/21 17:00 08/02/21 19:36 Hydromorphone 1 Mg/1 Ml Inj IV 0.5 mg Q4H PRN Administration breakthrough pain > 7/10 Lactated Ringer's 1,000 mls @ 125 mls/hr 08/02/21 11:30 08/05/21 17:25 Lactated Ringers IV 1,000 mls/hr DIRECT RODOLFO Administration Oxytocin/Sodium Chloride 30 units in 500 mls @ 40 mls/hr 08/02/21 22:03 Pitocin/Ns 30 Unit/500ml IV TITR RODOLFO Protocol Ibuprofen 600 mg 08/02/21 22:03 08/06/21 22:59 Ibuprofen 600 Mg Tab PO 600 mg Q6H PRN Administration Pain, Mild (1-3) Ibuprofen 800 mg 08/02/21 22:03 08/08/21 05:37 Ibuprofen 800 Mg Tab PO 800 mg Q6H PRN Administration Pain, Moderate (4-6) Loperamide HCl 2 mg 08/02/21 11:30 Loperamide 2 Mg Cap PO ONCE PRN give with Hemabate Magnesium Hydroxide 30 ml 08/02/21 22:03 Magnesium Hydroxide (Mom) Oral Liqd Udc PO QHS PRN Constip Unrelieved By Senna Methylergonovine Maleate 0.2 mg 08/02/21 11:30 Methylergonovine Maleate 0.2 Mg/Ml Vial IM ONCE PRN Uterine Bleeding Metronidazole 500 mg 08/06/21 14:00 08/08/21 01:36 Metronidazole 500 Mg Tab PO 500 mg Q8HR [facility] Administration Protocol Mineral Oil 30 ml 08/02/21 22:00 Mineral Oil 30 Ml Oral Liqd PO QHS PRN Constipation Misoprostol 800 mcg 08/02/21 11:30 Misoprostol 200 Mcg Tab [place] ONCE PRN Uterine Bleeding Morphine Sulfate 4 mg 08/02/21 22:03 08/02/21 22:54 Morphine 4 Mg/1 Ml Inj IV 4 mg Q4H PRN Administration Pain , Severe (7-10) Multi-Ingredient Ointment 1 applic 08/02/21 22:03 08/04/21 09:46 Lanolin/Zinc/Dimethicone (Lansinoh) 7 Gm TP 1 applic PRN PRN Administration dryness/cracking Multivitamins/Iron/Calcium 1 each 08/03/21 10:00 08/07/21 09:10 [id number] Fumarate-Folic Acid Vit Tab PO 1 each QDAY RODOLFO Administration Naloxone HCl 0.1 mg 08/02/21 22:03 Naloxone 0.4 Mg/1 Ml Inj IV Q2MIN PRN Res Rate </= 8 or 02 SAT < 92% Ondansetron HCl 4 mg 08/02/21 17:00 Ondansetron 4 Mg/2 Ml Inj IV Q8H PRN Nausea And Vomiting Oxycodone/Acetaminophen 2 tab 08/02/21 22:03 08/04/21 00:00 Oxycodone /Acetaminophen 5-325mg Tab PO 2 tab Q6H PRN Administration Pain , Severe (7-10) Oxytocin 10 unit 08/02/21 11:30 Oxytocin 10 Unit/1 Ml Inj IM ONCE PRN Uterine Bleeding Promethazine HCl 25 mg 08/02/21 11:30 Promethazine 25 Mg Tab PO Q6H PRN Nausea And Vomiting Senna 17.2 mg 08/02/21 22:03 Sennosides 8.6 Mg Tab PO QHS PRN Constipation Simethicone 80 mg 08/02/21 22:03 08/05/21 17:28 Simethicone 80 Mg Chew Tab PO 80 mg Q6H PRN Administration Gas pain Witch Anabella/Glycerin 1 each 08/02/21 22:03 08/04/21 08:09 Witch Anabella/ Glycerin Pad TP 1 each PRN PRN Administration Hemorrhoids/cleansing/soothing
[2021-08-08] MEDS: ASCORBIC ACID 500 MG TAB PO SCH ×4 (09:30→22:41)
[2021-08-08] MEDS ORDERED: FUROSEMIDE 40 MG TAB PO SCH (10:00)
[2021-08-08] MEDS: PRENATAL VIT27-FE FUMARATE-FOLIC ACID VIT TAB PO SCH (12:52)
[2021-08-08] MEDS: FERROUS SULFATE 325 MG TAB PO SCH ×3 (12:57→20:14)
--- NOTE | 2021-08-08 15:11 | Progress Note ---
Assessment and Plan Cultures: 08/02/2021 urine culture: No growth 08/02/2021 blood culture: E.coli A/P: 25-year-old female admitted to the hospital on 08/02/2021 was admitted from her OB clinic with active labor and blood-tinged amniotic fluid concerning for chorioamnionitis: #Sepsis present on admission, secondary to GNR bacteremia, secondary to chorioamnionitis: Status post on 08/02/2021. Clinically seems to be doing well. Abdominal ultrasound showed fatty infiltration, no other abnormality #Morbid obesity #Post status: baby in NICU, breast feeding #Mild LFT elevation Recs: -Continue PO Keflex plus PO Flagyl -If WBC in a.m. does not show improvement, recommend CT abdomen and pelvis to rule out any other infectious process, however she declines at this time. -Discharge tomorrow on PO cefdinir 300 mg BID + Flagyl 500 mg TID for 4 days d/w Dr. Quick. Jacob Mullins MD, FACP, [facility] O: [phone] F: [phone] Subjective Date of service: 08/08/21 Principal diagnosis: POD#6 C/S with bacteremia resolving Interval history: Patient lost her IV access. Declined reinsertion of IV. Also declined CT abdomen and pelvis. She feels well. Objective - Exam Narrative Exam: Physical Exam: Constitutional: Alert, cooperative. No acute distress Head, Ears, Nose: Normocephalic, atraumatic. External ears, nose normal Eyes: Conjunctivae/corneas clear. No icterus. No ptosis. Neck: Supple, no meningeal signs Cardiovascular: S1, S2 + Respiratory: Good air entry, clear to auscultation bilaterally GI: Soft, non-tender; bowel sounds normal. No peritoneal signs Musculoskeletal: No pedal edema, no cyanosis. Morbidly obese Skin: No rash or abscess Hem/Lymphatic: No palpable cervical or supraclavicular nodes. No lymphangitis Psych: Mood ok. Affect normal Neurological: Awake, alert, oriented. No gross abnormality - Constitutional Vitals: Vital Signs Temp Pulse Resp BP Pulse Ox 98.2 F 76 20 137/85 100 08/08/21 08:31 08/08/21 08:31 08/08/21 08:31 08/08/21 08:31 08/08/21 08:31 Temperature -Last 24 Hours Temperature 98.2 F Temperature 98.0 F Temperature 97.6 F - Labs CBC & Chem 7: 08/08/21 06:31 08/06/21 13:18 Labs: Abnormal lab results 08/08/21 Range/Units 06:31 WBC 17.9 H (4.5-11.0) K/mm3 RBC 3.30 L (3.65-5.03) M/mm3 Hgb 7.6 L (10.1-14.3) gm/dl Hct 24.6 L (30.3-42.9) % MCV 75 L (79-97) fl MCH 23 L (28-32) pg RDW 17.2 H (13.2-15.2) % Seg Neuts % (Manual) 74.0 H (40.0-70.0) % Lymphocytes % (Manual) 10.0 L (13.4-35.0) % Monocytes % (Manual) 9.0 H (0.0-7.3) % Seg Neutrophils # Man 13.2 H (1.8-7.7) K/mm3 Monocytes # (Manual) 1.6 H (0.0-0.8) K/mm3
[2021-08-09] MEDS: cephALEXin 500 MG CAP PO SCH ×2 (00:27→06:17)
[2021-08-09] MEDS: metroNIDAZOLE 500 MG TAB PO SCH (01:51)
[2021-08-09 08:13] LABS: Hematocrit 26.8 % (30.3-42.9); Hemoglobin 8.2 gm/dl (10.1-14.3); Mean Corpuscular HGB Conc 31 % (30-34); Mean Corpuscular Volume 76 fl (79-97); Platelet Count 504 K/mm3 (140-440); Red Blood Count 3.52 M/mm3 (3.65-5.03); Red Cell Distribution Width 16.9 % (13.2-15.2)
--- NOTE | 2021-08-09 08:45 | Progress Note ---
Assessment and Plan POD#7 C/Section with bacteremia, asymptomatic anemia and ready for discharge home 1. Appreciate ID and will discharge pt home on keflex and flagyl [id number]; NO repeat blood cultures needed per ID 2. Pt to follow up with [facility] in 1wk for wound check; pt given percocet and motrin prn for pain. 3. plan of care discussed with pt and her FOB; all questions encouraged and answered Subjective Date of service: 08/09/21 Principal diagnosis: POD#7 C/S with bacteremia with wbc much improved Interval history: pt has no complaints and she is ready to go home today with her baby. pt has pumped 6 bottles of milk for her baby since 6:30am this morning. Baby still in the NICU and pt states baby to be discharged home with her today. Vag bleed minimal, voiding without difficulty and denies pelvic pain. Objective - Constitutional Vitals: Vital Signs - 12hr 08/08/21 21:00 O2 Sat by Pulse 100 Oximetry [ Anterior Bilateral Throughout] General appearance: Present: no acute distress - Respiratory Respiratory effort: normal - Breasts Breasts: deferred - Cardiovascular Rhythm: regular Extremity abnormal: edema (trace, much improved) - Gastrointestinal General gastrointestinal: Present: soft, non-tender, other (incision C/D/I ) - Genitourinary Female genitourinary: other (lochia scant; Fundus non-tender) - Neurologic Neurologic: CNII-XII intact - Labs CBC & Chem 7: 08/09/21 07:42 08/06/21 13:18 Labs: Abnormal lab results 08/09/21 Range/Units 07:42 WBC 16.9 H (4.5-11.0) K/mm3 RBC 3.52 L (3.65-5.03) M/mm3 Hgb 8.2 L (10.1-14.3) gm/dl Hct 26.8 L (30.3-42.9) % MCV 76 L (79-97) fl MCH 23 L (28-32) pg RDW 16.9 H (13.2-15.2) % Plt Count 504 H (140-440) K/mm3 Medications & Allergies - Medications Allergies/Adverse Reactions: Allergies No Known Allergies Allergy (Verified 08/02/21 11:48) Home Medications: Home Medications Medication Instructions Recorded Confirmed Last Taken Type [facility] Vitamins Tablet 1 tab PO DAILY 08/02/21 08/02/21 3 Days Ago History ~07/30/21 Ibuprofen [Motrin] 800 mg PO Q8HR PRN 21 Days #40 08/02/21 Unknown Rx tablet oxyCODONE /ACETAMINOPHEN [Percocet 1 tab PO Q4HR PRN 21 Days #30 tab 08/02/21 Unknown Rx 5/325] Active Medications: Generic Name Dose Route Start Last Admin Trade Name Freq PRN Reason Stop Dose Admin Acetaminophen 650 mg 08/02/21 11:30 08/04/21 15:59 Acetaminophen 325 Mg Tab PO 650 mg Q4H PRN Administration Pain, Mild (1-3) Ascorbic Acid 500 mg 08/06/21 17:28 08/08/21 22:41 Ascorbic Acid 500 Mg Tab PO 500 mg TID RODOLFO Administration Carboprost Tromethamine 250 mcg 08/02/21 11:30 Carboprost Tromethamine 250 Mcg/1 Ml Inj IM ONCE PRN Uterine Bleeding Cephalexin 1,000 mg 08/07/21 15:00 08/09/21 06:17 Cephalexin 500 Mg Cap PO 1,000 mg Q6HR RODOLFO Administration Protocol Diphenhydramine HCl 12.5 mg 08/02/21 17:00 Diphenhydramine 50 Mg/Ml Vial IV Q2H PRN Itching Ferrous Sulfate 325 mg 08/03/21 20:00 08/08/21 20:14 Ferrous Sulfate 325 Mg Tab PO 325 mg TID RODOLFO Administration Furosemide 40 mg 08/08/21 10:00 08/08/21 12:52 Furosemide 40 Mg Tab PO 08/09/21 10:01 40 mg QDAY RODOLFO Administration Hydrocortisone Acetate 25 mg 08/02/21 22:03 Hydrocortisone 25 Mg Rectal Supp OK BID PRN Hemorrhoids Hydromorphone HCl 0.5 mg 08/02/21 17:00 08/02/21 19:36 Hydromorphone 1 Mg/1 Ml Inj IV 0.5 mg Q4H PRN Administration breakthrough pain > 7/10 Lactated Ringer's 1,000 mls @ 125 mls/hr 08/02/21 11:30 08/05/21 17:25 Lactated Ringers IV 1,000 mls/hr DIRECT RODOLFO Administration Oxytocin/Sodium Chloride 30 units in 500 mls @ 40 mls/hr 01/11/22 22:03 Pitocin/Ns 30 Unit/500ml IV TITR RODOLFO Protocol Ibuprofen 600 mg 08/02/21 22:03 08/06/21 22:59 Ibuprofen 600 Mg Tab PO 600 mg Q6H PRN Administration Pain, Mild (1-3) Ibuprofen 800 mg 08/02/21 22:03 08/08/21 20:14 Ibuprofen 800 Mg Tab PO 800 mg Q6H PRN Administration Pain, Moderate (4-6) Loperamide HCl 2 mg 08/02/21 11:30 Loperamide 2 Mg Cap PO ONCE PRN give with Hemabate Magnesium Hydroxide 30 ml 08/02/21 22:03 Magnesium Hydroxide (Mom) Oral Liqd Udc PO QHS PRN Constip Unrelieved By Senna Methylergonovine Maleate 0.2 mg 08/02/21 11:30 Methylergonovine Maleate 0.2 Mg/Ml Vial IM ONCE PRN Uterine Bleeding Metronidazole 500 mg 08/06/21 14:00 08/09/21 01:51 Metronidazole 500 Mg Tab PO 500 mg Q8HR RODOLFO Administration Protocol Mineral Oil 30 ml 08/02/21 22:00 Mineral Oil 30 Ml Oral Liqd PO QHS PRN Constipation Misoprostol 800 mcg 08/02/21 11:30 Misoprostol 200 Mcg Tab OK ONCE PRN Uterine Bleeding Morphine Sulfate 4 mg 08/02/21 22:03 08/02/21 22:54 Morphine 4 Mg/1 Ml Inj IV 4 mg Q4H PRN Administration Pain , Severe (7-10) Multi-Ingredient Ointment 1 applic 08/02/21 22:03 08/04/21 09:46 Lanolin/Zinc/Dimethicone (Lansinoh) 7 Gm TP 1 applic PRN PRN Administration dryness/cracking Multivitamins/Iron/Calcium 1 each 08/03/21 10:00 08/08/21 12:52 [id number] Fumarate-Folic Acid Vit Tab PO 1 each QDAY RODOLFO Administration Naloxone HCl 0.1 mg 08/02/21 22:03 Naloxone 0.4 Mg/1 Ml Inj IV Q2MIN PRN Res Rate </= 8 or 02 SAT < 92% Ondansetron HCl 4 mg 08/02/21 17:00 Ondansetron 4 Mg/2 Ml Inj IV Q8H PRN Nausea And Vomiting Oxycodone/Acetaminophen 2 tab 08/02/21 22:03 08/04/21 00:00 Oxycodone /Acetaminophen 5-325mg Tab PO 2 tab Q6H PRN Administration Pain , Severe (7-10) Oxytocin 10 unit 08/02/21 11:30 Oxytocin 10 Unit/1 Ml Inj IM ONCE PRN Uterine Bleeding Promethazine HCl 25 mg 08/02/21 11:30 Promethazine 25 Mg Tab PO Q6H PRN Nausea And Vomiting Senna 17.2 mg 08/02/21 22:03 Sennosides 8.6 Mg Tab PO QHS PRN Constipation Simethicone 80 mg 08/02/21 22:03 08/05/21 17:28 Simethicone 80 Mg Chew Tab PO 80 mg Q6H PRN Administration Gas pain Witch Anabella/Glycerin 1 each 08/02/21 22:03 08/04/21 08:09 Witch Anabella/ Glycerin Pad TP 1 each PRN PRN Administration Hemorrhoids/cleansing/soothing
[2021-08-09 09:04] LABS: Anisocytosis 1+; Band Neutrophils # (Manual) 0.8 K/mm3; Basophils % (Manual) 0 % (0.0-1.8); Total Cells Counted 100
[2021-08-09 09:05] LABS: Burr Cells Few; Hypochromasia 1+; Platelet Estimate Consistent w Auto; Poikilocytosis 1+; Tear Drop Cells Few
[2021-08-09 12:55] VITALS: BP 144/88
--- NOTE | 2021-08-09 17:35 | Discharge Summary ---
Providers - Providers Date of Admission: 08/02/21 11:06 Date of discharge: 08/09/21 Attending physician: ANAY VILLAVICENCIO 08/03/21 16:45 Consult to Physician [CONS] Urgent Comment: Consulting Provider: DAGO MULLINS Physician Instructions: Reason For Exam: bacteremia, with worsening leucocytosis Primary care physician: ANAY VILLAVICENCIO Hospitalization Reason for admission: rupture of membranes, IUP at term, other (Febrile morbidity in labor ) Delivery: Procedure: primary low transverse Episiotomy: none Laceration: none Other procedures: none complications: other (Bacteremia in 1 of 2 blood cultures and urine culture neg) Discharge diagnosis: IUP at term delivered baby: male Pertinent studies: blood culture positive with Ecoli and leucocytosis Hospital course: at 38.1wks, Term IUP admitted with PROM and leucocytosis of 16.9 and given IV pitocin augmentation and ampicillin inspite of GBS negative. Pt had febrile morbidity and blood cultures, CXR and urine culture done and gentamycin added for presumed chorio. Pt after much encouragement, primary section done and viable male delivered and sent to NICU and noted to have bandemia and treated in NICU for infection. Consult done for pt with positive Ecoli blood cultures and Infectious Disease specialist, Dr. Mullins, treated pt with zosyn and amp/gent/clinda given for chorio stopped at 24hrs post delivery. Pt remained in the hospital for 7days and received IV antibiotics x5days when IV infiltrated and pt given Keflex with symptoms of green diarrhea x4 stools. Pt also given oral flagyl. course for her incision with good wound healing and pt able to pump large amounts of breast milk for baby. Surgical wound remained without tenderness or drainage and pt voiding without dysuria in normal amounts. Vag bleed remained small amount. Pt was discharged on these oral meds for 10day course as recommended by ID. Pt offered CT abd/pelvis with slow decline of wbc, pt declined because of multiple IV starts and pt states she got stuck "enough." On discharge, pt hgb 8.2 (preop hgb 10.0) and wbc 16.9 (17.6 on admit). Pt was discharged home on Keflex and flagyl, ferrous sulfate TID and vit C TID and perocet and motrin meds. All questions encouraged and answered Condition at discharge: Good Disposition: 01 HOME / SELF CARE / HOMELESS - Discharge Diagnoses (1) Morbid obesity due to excess calories Status: Acute (2) S/P primary low transverse Status: Acute (3) Bacteremia Status: Acute Plan - Discharge Medications Prescriptions: Ferrous Sulfate [Ferrous Sulfate 324 MG] 324 mg PO TID 30 Days #90 metroNIDAZOLE [Flagyl] 500 mg PO Q8HR 10 Days #30 tablet cephALEXin [Keflex] 1,000 mg PO Q6HR 10 Days #40 cap Ibuprofen [Motrin] 800 mg PO Q8HR PRN 21 Days #40 tablet PRN Reason: Pain, Moderate (4-6) oxyCODONE /ACETAMINOPHEN [Percocet 5/325] 1 tab PO Q4HR PRN 21 Days #30 tab PRN Reason: Pain , Severe (7-10) Ascorbic Acid [Vitamin C] 500 mg PO TID 30 Days #90 - Provider Discharge Summary Additional instructions: [] Smoking cessation referral if applicable(refer to patient education folder for contact #) [] Refer to [facility]'s [facility] Booklet Call your doctor immediately for: * Fever > 100.5 * Heavy vaginal bleeding ( >1 pad per hour) * Severe persistent headache * Shortness of breath * Reddened, hot, painful area to leg or breast * Drainage or odor from incision. * Keep incision clean and dry at all times and follow doctor's instructions regarding bathing/showering - Follow up plan Follow up: ANAY VILLAVICENCIO MD [Primary Care Provider] - 7 Days Forms: [facility] Discharge Summary
== END 2021-08-09 13:00 | disposition home or self-care (01) | DRG 765 ==
LOC: TRG 09:56 → APU 09:57 → LD 11:29 → TRG 11:36 → LD 11:44 → APU 16:10 → OB 21:50
PROVIDERS: ADMIT Obstetrics & Gynecology; ATTEND Obstetrics & Gynecology
PROC: 10D00Z1 Extraction of Products of Conception, Low, Open Approach (ICD-10-PCS; principal; 2021-08-02)
DX: O75.3 Other infection during labor (principal); O41.1230 Chorioamnionitis, third trimester, not applicable or unspecified; A41.50 Gram-negative sepsis, unspecified; O76 Abnormality in fetal heart rate and rhythm complicating labor and delivery; O75.0 Maternal distress during labor and delivery; D64.9 Anemia, unspecified; Z3A.39 39 weeks gestation of pregnancy; Z37.0 Single live birth; Z20.822 Contact with and (suspected) exposure to COVID-19; O99.214 Obesity complicating childbirth; E66.01 Morbid (severe) obesity due to excess calories; O72.1 Other immediate postpartum hemorrhage; O90.81 Anemia of the puerperium
CPT/HCPCS: 36415; 71045; 76705; 80053; 82140; 83615; 84550; 85007; 85025; 85027; 86592; 86850; 86900; 86901; 87040; 87076; 87086; 87186; 88307; 96360; 99211; G0378; J3490; J7121; J7502; Q0162; G0463; J0290; J0696; J1100; J1170; J1580; J1885; J1940; J2270; J2370; J2405; J2543; J2765; J7030; J7120; U0003